=== PATIENT | female | born 1955 | race Caucasian/White ===

== ENCOUNTER → 2017-12-20 00:06 | Outpatient (CLI) | payer OTHER, SELFPAY ==
--- NOTE | 2017-12-20 07:16 | DI.REPORT_ITS ---
SYMPTOM/DIAGNOSIS: SCREENING, Z12.31 MAMMOGRAMS: Mammograms were interpreted according to the usual protocol including computer analysis with CAD system, tomosynthesis and C view imaging. Comparison with prior examinations. Breast density category A. No masses or microcalcifications are seen. There is nothing to suggest malignancy. IMPRESSION: Negative mammogram. Category 1-A. Routine screening is recommended. SA ASSESSMENT OF FINDINGS: Negative. Category 1. Patient will receive a letter notifying them of these results. BI-RAD category A. The breasts are almost entirely fatty.
[2017-12-20 08:08] LABS: PHENYTOIN (DILANTIN) 12.1 ug/mL (10.0-20.0)
[2017-12-20 08:09] LABS: Anion Gap 7.8 mmol/L (3-11); BUN 15 mg/dL (7-18); CO2 28.2 mmol/L (21.0-32.0); CREATININE 0.88 mg/dL (0.55-1.02); Calcium 8.5 mg/dL (8.5-10.1); Chloride 104 mmol/L (98-107); Cholesterol 181 mg/dL (50-200); Glucose 110 mg/dL (70-100); HDL Cholesterol 89 mg/dL (40-60); LDL CHOLESTEROL 80 mg/dL (<100); Potassium 4.2 mmol/L (3.5-5.1); Sodium 140 mmol/L (136-145); Triglyceride 67 mg/dL (30-150)
== END ==
PROVIDERS: PCP Nurse Practitioner Family; Visit Provider Nurse Practitioner Family
DX: Z00.00 Encounter for general adult medical examination without abnormal findings (principal); Z12.31 Encounter for screening mammogram for malignant neoplasm of breast; I10 Essential (primary) hypertension; G40.909 Epilepsy, unspecified, not intractable, without status epilepticus; Z51.81 Encounter for therapeutic drug level monitoring
CPT/HCPCS: 36415; 77063; 77067; 80048; 80061; 83721; 80185

== ENCOUNTER 2017-12-27 08:23 | Emergency (ER) | payer OTHER, SELFPAY ==
[2017-12-27] VITALS (15 sets, daily range): BP systolic 63–153; BP diastolic 32–93; PULSE 76–166; RESP 12–25; TEMP 36.6; O2SAT 90–96
[2017-12-27] MEDS: Verapamil 5 MG/2 ML VIAL IVP (08:35)
--- NOTE | 2017-12-27 08:37 | ED.GENADUL ---
Disposition Clinical Impression: SVT (supraventricular tachycardia) Disposition: HOME Condition: Stable Instructions: Supraventricular Tachycardia (ED) Additional Instructions: Drink plenty of fluids and get plenty of rest. Take your regular medications as directed. You should receive a call from care management regarding follow-up with cardiology. Follow-up with your primary care doctor within the next week. Return to the emergency department with any worsening or new concerning symptoms. Medical Decision Making - Lab Data Laboratory Tests 12/27/17 12/27/17 08:35 08:35 WBC 8.66 RBC 4.60 Hgb 14.5 Hct 42.7 MCV 92.8 MCH 31.5 MCHC 34.0 RDW 12.7 Plt Count 262 MPV 9.9 Immature Gran % 0.2 Neutrophils % 62.0 Lymphocytes % 26.3 Monocytes % 7.9 Eosinophils % 2.8 Basophils % 0.8 Absolute Neutrophils 5.37 Absolute Lymphocytes 2.28 Absolute Monocytes 0.68 Absolute Eosinophils 0.24 Absolute Basophils 0.07 Sodium 139 Potassium 3.9 Chloride 103 Carbon Dioxide 24.6 Anion Gap 11.4 H BUN 12 Creatinine 0.83 Estimated GFR/1.73 m2 >= 60.00 Glucose 115 H Calcium 8.5 Magnesium 2.0 Total Bilirubin 0.4 AST 16 ALT 21 Alkaline Phosphatase 129 H Troponin I < 0.02 Total Protein 7.8 Albumin 3.7 12/27/17 08:30: [address] depression noted in 1, 2, aVL, V4 through V6. 12/27/17 08:41 [address] bpm. Sinus. No acute ST elevation or depression. - Medical Decision Making 62-year-old female with history of paroxysmal SVT on 240 mg p.o. verapamil twice daily, endometrial cancer who presents with palpitations since 730 this morning. She denies chest pain or shortness of breath. EKG noted a rate of 161 and SVT. Patient has been seen multiple times before for similar episode and her EKG has an abnormal pattern which looks like SVT with aberrancy. The EKG today looks like a classic SVT and there is no aberrancy pattern. Patient was last seen here on September 17, 2017 and her EKG at that time did look like SVT with aberrancy which has been concerning to look like V. tach in the past but she has been told it's SVT with aberrancy. She states since her last visit here in September 17, 2017, she has been taken off her PO progesterone for endometrial cancer by her admin prog coord. She was started on Mirena IUD end of September. She states she was told her abnormal SVT pattern may have been due to her hormone therapy. Unsure if the hormones may have had any effect on her SVT pattern but it is interesting to note that looking back at previous EKGs she has always had the SVT with aberrancy pattern and today is looking like classic SVT. However she is on Mirena IUD so she is still on some progestin hormone therapy. Patient is declining any Valsalva maneuvers here in the ED stating she has already tried these at home. She is agreeable to lab work. She is only requesting 5 mg IV verapamil. Remainder vitals within normal limits and she appears nontoxic. 0845: Repeat EKG after 5 mg IV verapamil notes sinus rhythm of [address] elevation or depression. 0900: Pt is refusing chest xray. She was informed of the risks of missing an acute process that could be identified on chest x-ray but she declined stating this is not necessary and she has had this before. 0930: Labs reviewed and negative. Patient feels fine and would like to go home. She is sitting on edge of stretcher and appears in no acute distress. Patient states she has had these episodes before and feels fine after either converting herself at home or verapamil in the ED and generally goes to work afterwards. Patient states she plans on going to work right after this now. Patient was instructed on the importance of rest, increase fluids and follow-up with cardiology. She states she usually sees her primary care doctor for this. Will have care management arrange for follow-up appointment with cardiology. History of Present Illness - General Chief complaint: Palpitatns Stated complaint: SVT ATTACK Time Seen by Provider: 12/27/17 08:26 Source: patient Mode of arrival: ambulatory Limitations: no limitations - History of Present Illness Initial comments: Pt is a 62yo F w/ a h/o paroxysmal SVT who presents to the ED with palpitations since 730 this morning. Patient states this feels like her usual episodes of SVT. Patient has been seen multiple times in the ED before for this and states she usually gets IV verapamil and she converts. Patient states she tried multiple maneuvers at home including Valsalva with bearing down, carotid massage, and drinking cold water without relief. She denies any recent illness. She states she had been feeling at her baseline prior to the onset this morning. Patient denies chest pain or shortness of breath, vomiting or dizziness. States she took her 240 mg p.o. verapamil this morning. She takes 240 verapamil p.o. twice daily - Related Data Atenolol 25 mg PO DAILY #45 tab-cap 04/04/17 Phenytoin-Extended [Dilantin] 3 cap PO DAILY #270 tab-cap NS 09/03/17 Verapamil HCl [Verapamil ER] 240 mg PO BID #180 [email or web address] 09/03/17 Levonorgestrel [Mirena] 1 each IY DAILY 09/17/17 Allergies Allergy/AdvReac Type Severity Reaction Status Date / Time Sulfa (Sulfonamide Allergy Unknown CHILDHOOD Unverified 12/27/17 08:47 Antibiotics) ALLERGY adenosine AdvReac Mild felt like Unverified 12/27/17 08:47 she was going to have seizure Review of Systems Constitutional: denies: chills, fever Eyes: denies: eye pain ENT: denies: ear pain, dental pain Respiratory: denies: cough, shortness of breath Cardiovascular: palpitations. denies: chest pain, dyspnea on exertion Gastrointestinal: denies: abdominal pain, nausea, vomiting Genitourinary: denies: urgency, dysuria, frequency Musculoskeletal: denies: back pain Skin: denies: rash, lesions Neurological: denies: headache, weakness, numbness Past Medical History - Past Medical History Medical history: cancer (Endometrial), hypertension, seizures SVT with aberrant conduction Surgical history: cholecystectomy, , other (Tonsillectomy) Family history: no significant family history - Social History Smoking status: never smoker Alcohol use: none Drug use: none General Exam - General Limitations: no limitations General appearance: alert, in no apparent distress - Eye Eye exam: Present: EOMI - Respiratory Respiratory exam: Present: normal lung sounds bilaterally. Absent: respiratory distress, wheezes, rales, rhonchi, stridor - Cardiovascular Cardiovascular Exam: Present: normal rhythm, tachycardia - GI/Abdominal GI/Abdominal exam: Present: soft, normal bowel sounds. Absent: distended, tenderness, guarding, rebound, rigid - Extremities Exam Extremities exam: Present: other (bilaterally large lower extremities, nonpitting edema) - Neurological Exam Neurological exam: Present: alert, oriented X3 - Psychiatric Psychiatric exam: Present: normal affect - Skin Skin exam: Present: warm, dry, intact
[2017-12-27 08:42] LABS: Abs Immature Grans 0.02 k/cumm (0.0-0.09); Absolute Basophil Count 0.07 k/cumm (0.0-0.2); Absolute Eosinophil Count 0.24 k/cumm (0.0-0.7); Absolute Lymphocyte Count 2.28 k/cumm (1.2-3.4); Absolute Monocyte Count 0.68 k/cumm (0.11-0.7); Absolute Neutrophil Count 5.37 k/cumm (1.2-6.7); Basophils % 0.8; Eosinophils % 2.8; HCT 42.7 % (36.0-46.0); HGB 14.5 g/dL (12.0-15.5); Immature Grans % 0.2; Lymphocytes % 26.3; Mean Corpuscular Hemoglobin 31.5 pg (27.0-33.0); Mean Corpuscular Volume 92.8 fL (80-95); Mean Platelet Volume 9.9 fL (8.0-11.0); Monocytes % 7.9; Platelet Count 262 x1000/uL (130-400); RBC Distribution Width 12.7 % (11.7-14.6); White Blood Cell Count 8.66 k/cumm (4.4-10.8)
[2017-12-27 09:15] LABS: ALT 21 U/L (12-78); AST 16 U/L (15-37); Albumin 3.7 g/dL (3.4-5.0); Alkaline Phosphatase 129 U/L (46-116); Anion Gap 11.4 mmol/L (3-11); BUN 12 mg/dL (7-18); Bilirubin, Total 0.4 mg/dL (0.2-1.0); CO2 24.6 mmol/L (21.0-32.0); CREATININE 0.83 mg/dL (0.55-1.02); Calcium 8.5 mg/dL (8.5-10.1); Chloride 103 mmol/L (98-107); Glucose 115 mg/dL (70-100); Potassium 3.9 mmol/L (3.5-5.1); Sodium 139 mmol/L (136-145); Total Protein 7.8 g/dL (6.4-8.2)
[2017-12-27 09:21] LABS: Troponin I < 0.02 ng/mL (0.00-0.06)
== END 2017-12-27 09:51 | disposition home or self-care (01) ==
PROVIDERS: Emergency Provider Physician Assistant; PCP Nurse Practitioner Family
DX: I47.1 Supraventricular tachycardia (principal); I10 Essential (primary) hypertension
CPT/HCPCS: 36415; 80053; 93005; 96374; 99285; 83735; 84484; 85025; 93010

== ENCOUNTER 2018-01-24 10:38 | Emergency (ER) | payer OTHER, SELFPAY ==
[2018-01-24] VITALS (13 sets, daily range): BP systolic 118–139; BP diastolic 78–116; PULSE 69–171; RESP 10–22; TEMP 36.7; O2SAT 90–95
--- NOTE | 2018-01-24 10:47 | W.ED.GENAD ---
Discharge Plan Disposition Patient Disposition: HOME Condition: Stable Discharge Details Chief Complaint: Palpitatns Clinical Impression: Paroxysmal supraventricular tachycardia Primary Care Provider: Natividad Almeida ED Provider: Jamarcus Salgado Home Meds and New Rx's Prescriptions: Continue atenolol 50 MG tablet 25 mg PO DAILY Qty: 45 RF: 3 phenytoin sodium extended [Dilantin Extended] 100 MG capsule 3 cap PO DAILY Qty: 270 RF: 3 verapamil 240 MG capsule,ext rel. pellets 24 hr 240 mg PO BID Qty: 180 RF: 3 levonorgestrel [Mirena] 1 EACH intrauterine device 1 ea Intrauterine DAILY RF: 0 Discharge Instructions Instructions: Supraventricular Tachycardia (ED) Discharge Data Discharge Physician: Jamarcus Salgado Medical Decision Making MDM Narrative Medical decision making narrative: 62 yo female with known hx of svt on verapamil, comes in with complaint of I'm in SVT. She states she normally gets fluttering in her chest when she is in svt and started while doing laundry about 45 minutes ago. She denies chest tish, pressure, fevers, dyspnea. She tried vagal maneuvers at home without relief so came here. Given her known hx of svt and tele/ecg confirming this with no pain doubt acs at this time and no hypoxia or evidence of dvt nor pleuritic chest pain or sob so doubt PE. Will give verapamil as she declines adenosine or other meds for svt and monitor pt converted to normal sinus rhythm after 10mg IVP verapamil. Remains HD stable, awaiting lab work lab work is unremarkable and she remains in sinus rhythm without complaints. 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 Differential Diagnosis svt, electrolyte abnormality ECG Data Attestation: I personally reviewed and interpreted this ECG (s) as follows: Prior ECG tracings: not available for review Interpretation: 1st ekg shows SVT, rate of 170, nonspecific st depression in lateral leads 2nd ekg shows normal sinus rhythm, rate of 77, LVH, normal pr HPI - General Adult General Mode of arrival: ambulatory. Date/Time Provider Initiated Documentation: 01/24/18 10:44. Limitations to Documentation: no limitations. Information obtained by: patient. History of Present Illness 62 year old F presents to the emergency department with the chief complaint of palpitations, described as mild and moderate, with intensity rated at 3. Quality is described as other (heart beating fast), and is localized to the chest. Patient reports no radiation. Patient started experiencing this minute(s) (45) and it has been constant. No relieving factors improve symptom(s), No exacerbating factors reported . Patient notes no other symptoms.. Patient did receive the following treatments prior to arrival, none Related Data Home Medications Medication Instructions Recorded Confirmed levonorgestrel [Mirena] 1 ea INTRAUTERINE DAILY 09/17/17 12/27/17 Allergies Allergy/AdvReac Type Severity Reaction Status Date / Time Sulfa (Sulfonamide Allergy Unknown CHILDHOOD Unverified 12/27/17 08:47 Antibiotics) ALLERGY adenosine AdvReac Mild felt like Unverified 12/27/17 08:47 she was going to have seizure Review of Systems Review of Systems All systems reviewed & are unremarkable except as noted in HPI and below Constitutional Denies chills, Denies fever(s) and Denies weakness Eyes Patient Denies loss of vision ENT Denies change in voice Cardiovascular Denies chest pain and Denies dyspnea Respiratory Denies dyspnea Gastrointestinal Denies abdominal pain, Denies nausea and Denies vomiting Genitourinary Denies dysuria Musculoskeletal Denies joint swelling Integumentary/Breasts Denies rash Neurologic Denies loss of vision and Denies weakness Psychiatric Denies depression Endocrine Denies cold intolerance and Denies heat intolerance Allergic/Immunologic Reports urticaria PFSH Family History Mother Essential hypertension Diabetes Alcohol abuse Depression Hyperlipidemia COPD (chronic obstructive pulmonary disease) Father Essential hypertension Prostate cancer Alcohol abuse Essential hypertension Personal history of malignant neoplasm Sister Essential hypertension Brother Essential hypertension Depression Grandfather Essential hypertension Depression Heart disease Hyperlipidemia Grandfather Prostate cancer Asthma Grandmother Essential hypertension Neoplasm Breast cancer Cerebrovascular accident Grandmother Essential hypertension Cerebrovascular accident Son No problems noted. Son Diffuse cerebral atrophy Hypoparathyroidism Developmental delay Son No problems noted. Other Skin cancer Medical History Endometrial hyperplasia without atypia, complex (10/08/16) Epilepsy (05/20/75) Hypertension Morbid obesity Paroxysmal SVT (supraventricular tachycardia) (05/20/94) Postmenopausal bleeding Social History Smoking/Tobacco Use Status: Never Surgical History section Cholecystectomy (~1989) Endometrial Biopsy (09/26/16) Ligation of fallopian tube (~04/1986) Tonsillectomy (~1963) Exam Const General: no acute distress Orientation: alert HENMT Head: normal to inspection Ears: external ears normal General nose exam: external nose normal Mouth: moist mucous membranes Eyes General: appearance normal, both eyes and all related structures Neck Neck: normal visual inspection Resp Effort & Inspection: normal respiratory effort and able to speak in complete sentences Cardio Rate: tachycardic Rhythm: regular rhythm Skin General skin exam: no rashes or lesions noted Neuro General: alert and oriented x3 Extrem General: normal to inspection Psych Mental Status: mental status grossly normal Critical Care Time Critical Care Time: Yes Total Critical Care Time: 45 (minutes) Attestation: Time spent giving IV Calcium channel princess, ecg review, lab review and frequent reassessments in patient with svt and potential to deteriorate at any time
[2018-01-24] MEDS: Verapamil 5 MG/2 ML VIAL 10 MG IVP (10:50)
--- NOTE | 2018-01-24 10:50 | ED.GENADUL_ITS ---
Discharge Plan Disposition Patient Disposition: HOME Condition: Stable Discharge Details Chief Complaint: Palpitatns Clinical Impression: Paroxysmal supraventricular tachycardia Primary Care Provider: Natividad Almeida ED Provider: Jamarcus Salgado Home Meds and New Rx's Prescriptions: Continue atenolol 50 MG tablet 25 mg PO DAILY Qty: 45 RF: 3 phenytoin sodium extended [Dilantin Extended] 100 MG capsule 3 cap PO DAILY Qty: 270 RF: 3 verapamil 240 MG capsule,ext rel. pellets 24 hr 240 mg PO BID Qty: 180 RF: 3 levonorgestrel [Mirena] 1 EACH intrauterine device 1 ea Intrauterine DAILY RF: 0 Discharge Instructions Instructions: Supraventricular Tachycardia (ED) Discharge Data Discharge Physician: Jamarcus Salgado Medical Decision Making MDM Narrative Medical decision making narrative: 62 yo female with known hx of svt on verapamil, comes in with complaint of I'm in SVT. She states she normally gets fluttering in her chest when she is in svt and started while doing laundry about 45 minutes ago. She denies chest tish, pressure, fevers, dyspnea. She tried vagal maneuvers at home without relief so came here. Given her known hx of svt and tele/ecg confirming this with no pain doubt acs at this time and no hypoxia or evidence of dvt nor pleuritic chest pain or sob so doubt PE. Will give verapamil as she declines adenosine or other meds for svt and monitor pt converted to normal sinus rhythm after 10mg IVP verapamil. Remains HD stable , awaiting lab work lab work is unremarkable and she remains in sinus rhythm without complaints. 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 Differential Diagnosis svt, electrolyte abnormality ECG Data Attestation: I personally reviewed and interpreted this ECG (s) as follows: Prior ECG tracings: not available for review Interpretation: 1st ekg shows SVT, rate of 170, nonspecific st depression in lateral leads 2nd ekg shows normal sinus rhythm, rate of 77, LVH, normal pr HPI - General Adult General Mode of arrival: ambulatory . Date/Time Provider Initiated Documentation: 01/24/18 10:44 . Limitations to Documentation: no limitations . Information obtained by: patient . History of Present Illness 62 year old F presents to the emergency department with the chief complaint of palpitations, described as mild and moderate, with intensity rated at 3. Quality is described as other (heart beating fast), and is localized to the chest. Patient reports no radiation. Patient started experiencing this minute(s) (45) and it has been constant. No relieving factors improve symptom(s), No exacerbating factors reported . Patient notes no other symptoms.. Patient did receive the following treatments prior to arrival, none Related Data Home Medications Medication Instructions Recorded Confirmed levonorgestrel [Mirena] 1 ea INTRAUTERINE DAILY 09/17/17 12/27/17 Allergies Allergy/AdvReac Type Severity Reaction Status Date / Time Sulfa (Sulfonamide Allergy Unknown CHILDHOOD Unverified 12/27/17 08:47 Antibiotics) ALLERGY adenosine AdvReac Mild felt like Unverified 12/27/17 08:47 she was going to have seizure Review of Systems Review of Systems All systems reviewed & are unremarkable except as noted in HPI and below Constitutional Denies chills, Denies fever(s) and Denies weakness Eyes Patient Denies loss of vision ENT Denies change in voice Cardiovascular Denies chest pain and Denies dyspnea Respiratory Denies dyspnea Gastrointestinal Denies abdominal pain, Denies nausea and Denies vomiting Genitourinary Denies dysuria Musculoskeletal Denies joint swelling Integumentary/Breasts Denies rash Neurologic Denies loss of vision and Denies weakness Psychiatric Denies depression Endocrine Denies cold intolerance and Denies heat intolerance Allergic/Immunologic Reports urticaria PFSH Family History Mother Essential hypertension Diabetes Alcohol abuse Depression Hyperlipidemia COPD (chronic obstructive pulmonary disease) Father Essential hypertension Prostate cancer Alcohol abuse Essential hypertension Personal history of malignant neoplasm Sister Essential hypertension Brother Essential hypertension Depression Grandfather Essential hypertension Depression Heart disease Hyperlipidemia Grandfather Prostate cancer Asthma Grandmother Essential hypertension Neoplasm Breast cancer Cerebrovascular accident Grandmother Essential hypertension Cerebrovascular accident Son No problems noted. Son Diffuse cerebral atrophy Hypoparathyroidism Developmental delay Son No problems noted. Other Skin cancer Medical History Endometrial hyperplasia without atypia, complex (10/08/16) Epilepsy (05/20/75) Hypertension Morbid obesity Paroxysmal SVT (supraventricular tachycardia) (05/20/94) Postmenopausal bleeding Social History Smoking/Tobacco Use Status: Never Surgical History section Cholecystectomy (~1989) Endometrial Biopsy (09/26/16) Ligation of fallopian tube (~04/1986) Tonsillectomy (~1963) Exam Const General: no acute distress Orientation: alert HENMT Head: normal to inspection Ears: external ears normal General nose exam: external nose normal Mouth: moist mucous membranes Eyes General: appearance normal, both eyes and all related structures Neck Neck: normal visual inspection Resp Effort & Inspection: normal respiratory effort and able to speak in complete sentences Cardio Rate: tachycardic Rhythm: regular rhythm Skin General skin exam: no rashes or lesions noted Neuro General: alert and oriented x3 Extrem General: normal to inspection Psych Mental Status: mental status grossly normal Critical Care Time Critical Care Time: Yes Total Critical Care Time: 45 (minutes) Attestation: Time spent giving IV Calcium channel princess, ecg review, lab review and frequent reassessments in patient with svt and potential to deteriorate at any time
[2018-01-24 11:03] LABS: Abs Immature Grans 0.04 k/cumm (0.0-0.09); Absolute Basophil Count 0.07 k/cumm (0.0-0.2); Absolute Eosinophil Count 0.22 k/cumm (0.0-0.7); Absolute Lymphocyte Count 2.51 k/cumm (1.2-3.4); Absolute Monocyte Count 0.71 k/cumm (0.11-0.7); Absolute Neutrophil Count 5.23 k/cumm (1.2-6.7); Basophils % 0.8; Eosinophils % 2.5; HCT 41.5 % (36.0-46.0); Immature Grans % 0.5; Lymphocytes % 28.6; Mean Corp. HGB Concentration 33.7 g/dL (32.0-36.0); Mean Corpuscular Hemoglobin 31.1 pg (27.0-33.0); Mean Corpuscular Volume 92.2 fL (80-95); Mean Platelet Volume 10.3 fL (8.0-11.0); Monocytes % 8.1; Neutrophils % 59.5; Platelet Count 246 x1000/uL (130-400); RBC Distribution Width 12.6 % (11.7-14.6); White Blood Cell Count 8.78 k/cumm (4.4-10.8)
[2018-01-24 11:13] LABS: ALT 18 U/L (12-78); AST 18 U/L (15-37); Albumin 3.7 g/dL (3.4-5.0); Alkaline Phosphatase 118 U/L (46-116); Anion Gap 11.5 mmol/L (3-11); BUN 14 mg/dL (7-18); Bilirubin, Total 0.3 mg/dL (0.2-1.0); CO2 24.5 mmol/L (21.0-32.0); Calcium 8.6 mg/dL (8.5-10.1); Chloride 104 mmol/L (98-107); Glucose 93 mg/dL (70-100); Potassium 3.9 mmol/L (3.5-5.1); Sodium 140 mmol/L (136-145); Total Protein 7.6 g/dL (6.4-8.2)
== END 2018-01-24 11:45 | disposition home or self-care (01) ==
LOC: ER 11:40
PROVIDERS: Emergency Provider Emergency Medicine; PCP Nurse Practitioner Family
DX: I47.1 Supraventricular tachycardia (principal); I10 Essential (primary) hypertension
CPT/HCPCS: 36415; 80053; 93005; 96374; 99285; 99291; 85025; 93010

== ENCOUNTER 2018-06-05 19:51 | Emergency (ER) | payer MEDICAID, SELFPAY ==
[2018-06-05 19:55] VITALS: BP 112/68; PULSE 182; RESP 19; TEMP 36.3; O2SAT 93
[2018-06-05 20:01] VITALS: BP 112/68; PULSE 183
[2018-06-05] MEDS: Verapamil 5 MG/2 ML VIAL 10 MG IVP (20:01)
--- NOTE | 2018-06-05 20:13 | W.ED.GENAD ---
Discharge Plan Disposition Patient Disposition: HOME Condition: Good Discharge Details Chief Complaint: Palpitatns Clinical Impression: Paroxysmal supraventricular tachycardia Primary Care Provider: Natividad Almeida ED Provider: Isidro Maldonado and New Rx's Prescriptions: Continued phenytoin sodium extended [Dilantin Extended] 100 MG capsule 3 cap PO DAILY Qty: 270 RF: 3 verapamil 240 MG capsule,ext rel. pellets 24 hr 240 mg PO BID Qty: 180 RF: 3 atenolol 50 mg tablet 25 mg PO DAILY Qty: 45 RF: 3 Mirena 1 EACH intrauterine device 1 ea Intrauterine DAILY RF: 0 Discharge Instructions Additional Instructions: Resume your previous medications as before. Follow-up with primary care as needed. Return to ED for syncope, shortness of breath, chest pain, recurrent SVT. Referrals: Natividad Almeida, CRIMINOLOGY PROFESSOR [Primary Care Provider] - Medical Decision Making Patient arrives with wide-complex tachycardia. I have seen her previously. She has had this dating back to her 20s. It is known to be SVT with aberrant conduction. She responds to verapamil. She is hemodynamically stable. IV is established and 10 mg of verapamil is ordered. Chemistries were ordered to check electrolytes. Within receiving about 5 mg of verapamil she broke into sinus rhythm. Will observe over the next hour or so and wait for labs to return. Patient has remained in sinus rhythm. Electrolytes are normal. Patient has been stable and will be discharged home on her previous medication regimen. Lab Data Lab results reviewed: Yes I reviewed the patient's lab results. ECG Data Attestation: I personally reviewed and interpreted this ECG (s) as follows: Prior ECG tracings: available for review Interpretation: EKG #1 with wide-complex tachycardia at a rate of 180. EKG #2 is sinus rhythm at a rate of 100. Normal axis and intervals at this point. No acute ST changes. Both EKGs have comparable EKGs in the system. The wide-complex tachycardia is known to be SVT with aberrant conduction. HPI General Mode of arrival: ambulatory. Date/Time Provider Initiated Documentation: 06/05/18 19:55. Limitations to Documentation: no limitations. Information obtained by: patient. HPI Narrative: Patient presents to ED with palpitations. Patient has history of same dating back to when she was in her 20s. She has known SVT with aberrant conduction. Onset about 40 minutes prior to arrival. No associated symptoms. No changes in medications, stimulants, illnesses. She denies having lightheadedness, dizziness, shortness of breath, chest pain or pressure. She did try vagal maneuvers and carotid massage at home. She has not missed any doses of medications which include atenolol and verapamil. Related Data Home Medications Medication Instructions Recorded Confirmed phenytoin sodium extended 3 cap PO DAILY #270 tab-cap NS 09/03/17 06/05/18 [Dilantin Extended] verapamil 240 mg PO BID #180 [email or web address] 09/03/17 06/05/18 Mirena 1 ea INTRAUTERINE DAILY 09/17/17 06/05/18 atenolol 50 mg tablet 25 mg PO DAILY #45 tab-cap 02/04/18 06/05/18 Previous Rx's Medication Instructions Recorded phenytoin sodium extended 3 cap PO DAILY #270 tab-cap NS 09/03/17 [Dilantin Extended] verapamil 240 mg PO BID #180 [email or web address] 09/03/17 atenolol 50 mg tablet 25 mg PO DAILY #45 tab-cap 02/04/18 Allergies Allergy/AdvReac Type Severity Reaction Status Date / Time Sulfa (Sulfonamide Allergy Unknown CHILDHOOD Unverified 06/05/18 20:08 Antibiotics) ALLERGY adenosine AdvReac Mild felt like Unverified 06/05/18 20:08 she was going to have seizure General Stated Complaint: Palpitatns RAMOS: 2 Review of Systems Constitutional Denies chills, Denies fever(s), Denies headache(s) and Denies weakness Eyes Denies eye discharge, Denies loss of vision and Denies eye pain ENT Denies vertigo, Denies otalgia, Denies facial pain, Denies headache(s), Denies nasal congestion, Denies neck pain, Denies sinus pressure and Denies sore throat Cardiovascular Denies chest pain, Denies diaphoresis, Denies syncope, Reports rapid heart rate, Denies edema, Denies leg edema, Denies lightheadedness, Reports palpitations, Denies dyspnea and Denies dyspnea on exertion Respiratory Denies chest congestion, Denies cough, Denies dyspnea and Denies dyspnea on exertion Gastrointestinal Denies abdominal pain, Denies diarrhea, Denies nausea and Denies vomiting Genitourinary Denies hematuria, Denies dysuria and Denies pelvic pain Musculoskeletal Denies back pain, Denies myalgias, Denies neck pain, Denies numbness and Denies tingling Integumentary/Breasts Denies rash Neurologic Denies confusion, Denies vertigo, Denies syncope, Denies headache(s), Denies focal weakness, Denies loss of vision, Denies numbness, Denies tingling, Denies paresthesias and Denies weakness Psychiatric Denies confusion Endocrine Reports palpitations [facility] Medical History Endometrial hyperplasia without atypia, complex (Chronic 10/08/16) Epilepsy (Chronic 05/20/75) Hypertension (Chronic) Morbid obesity (Chronic) Paroxysmal SVT (supraventricular tachycardia) (Chronic 05/20/94) Postmenopausal bleeding (Chronic) Surgical History section (Inactive) Cholecystectomy (Inactive ~1989) Endometrial Biopsy (Inactive 09/26/16) Ligation of fallopian tube (Inactive ~04/1986) Tonsillectomy (Inactive ~1963) Social History Smoking/Tobacco Use Status: Never Exam Const General: cooperative, comfortable and no acute distress Nutritional Appearance: obese morbidly obese Orientation: alert [facility] Head: normocephalic and atraumatic Mouth: moist mucous membranes Neck Neck: normal visual inspection, trachea midline and supple Resp Effort & Inspection: normal respiratory effort Auscultation: clear to auscultation bilaterally Cardio Rate: tachycardic Rhythm: regular rhythm Heart Sounds: S1 normal and S2 normal Pulses: radial pulses present GI Palpation: soft and nontender Skin General skin exam: no rashes or lesions noted Neuro General: alert, oriented x3 and no focal motor deficits Extrem General: no clubbing, cyanosis or edema and no calf tenderness Course Vital Signs Temperature 97.3 F L 06/05/18 19:55 Pulse 182 H 06/05/18 19:55 Respiratory Rate 06/05/18 19:55 Blood Pressure 112/68 06/05/18 19:55 Pulse Oximetry 93 L 06/05/18 19:55 Temperature 97.3 F L 06/05/18 19:55 Temperature Source Skin 06/05/18 19:55 Pulse 183 H 06/05/18 20:01 Respiratory Rate 19 06/05/18 19:55 Respiratory Effort 06/05/18 20:06 Blood Pressure 112/68 06/05/18 20:01 Blood Pressure Position Sitting 06/05/18 19:55 Pulse Oximetry 93 L 06/05/18 19:55 Oxygen Delivery Method Room Air 06/05/18 19:55 Oxygen Flow Rate 0 06/05/18 19:55 Pain Level 0 06/05/18 19:55 Critical Care Time Critical Care Time: Yes Total Critical Care Time: 40 Attestation: SVT at 180
--- NOTE | 2018-06-05 20:16 | ED.GENADUL_ITS ---
Discharge Plan Disposition Patient Disposition: HOME Condition: Good Discharge Details Chief Complaint: Palpitatns Clinical Impression: Paroxysmal supraventricular tachycardia Primary Care Provider: Natividad Almeida ED Provider: Isidro Maldonado and New Rx's Prescriptions: Continued phenytoin sodium extended [Dilantin Extended] 100 MG capsule 3 cap PO DAILY Qty: 270 RF: 3 verapamil 240 MG capsule,ext rel. pellets 24 hr 240 mg PO BID Qty: 180 RF: 3 atenolol 50 mg tablet 25 mg PO DAILY Qty: 45 RF: 3 Mirena 1 EACH intrauterine device 1 ea Intrauterine DAILY RF: 0 Discharge Instructions Additional Instructions: Resume your previous medications as before. Follow-up with primary care as needed. Return to ED for syncope, shortness of breath, chest pain, recurrent SVT. Referrals: Natividad Almeida, CHIP PERSON [Primary Care Provider] - Medical Decision Making Patient arrives with wide-complex tachycardia. I have seen her previously. She has had this dating back to her 20s. It is known to be SVT with aberrant conduction. She responds to verapamil. She is hemodynamically stable. IV is established and 10 mg of verapamil is ordered. Chemistries were ordered to check electrolytes. Within receiving about 5 mg of verapamil she broke into sinus rhythm. Will observe over the next hour or so and wait for labs to return. Patient has remained in sinus rhythm. Electrolytes are normal. Patient has been stable and will be discharged home on her previous medication regimen. Lab Data Lab results reviewed: Yes I reviewed the patient's lab results. ECG Data Attestation: I personally reviewed and interpreted this ECG (s) as follows: Prior ECG tracings: available for review Interpretation: EKG #1 with wide-complex tachycardia at a rate of 180. EKG #2 is sinus rhythm at a rate of 100. Normal axis and intervals at this point. No acute ST changes. Both EKGs have comparable EKGs in the system. The wide-complex tachycardia is known to be SVT with aberrant conduction. HPI General Mode of arrival: ambulatory . Date/Time Provider Initiated Documentation: 06/05/18 19:55 . Limitations to Documentation: no limitations . Information obtained by: patient . HPI Narrative: Patient presents to ED with palpitations. Patient has history of same dating back to when she was in her 20s. She has known SVT with aberrant conduction. Onset about 40 minutes prior to arrival. No associated symptoms. No changes in medications, stimulants, illnesses. She denies having lightheadedness, dizziness, shortness of breath, chest pain or pressure. She did try vagal maneuvers and carotid massage at home. She has not missed any doses of medications which include atenolol and verapamil. Related Data Home Medications Medication Instructions Recorded Confirmed phenytoin sodium extended 3 cap PO DAILY #270 tab-cap NS 09/03/17 06/05/18 [Dilantin Extended] verapamil 240 mg PO BID #180 [email or web address] 09/03/17 06/05/18 Mirena 1 ea INTRAUTERINE DAILY 09/17/17 06/05/18 atenolol 50 mg tablet 25 mg PO DAILY #45 tab-cap 02/04/18 06/05/18 Previous Rx's Medication Instructions Recorded phenytoin sodium extended 3 cap PO DAILY #270 tab-cap NS 09/03/17 [Dilantin Extended] verapamil 240 mg PO BID #180 [email or web address] 09/03/17 atenolol 50 mg tablet 25 mg PO DAILY #45 tab-cap 02/04/18 Allergies Allergy/AdvReac Type Severity Reaction Status Date / Time Sulfa (Sulfonamide Allergy Unknown CHILDHOOD Unverified 06/05/18 20:08 Antibiotics) ALLERGY adenosine AdvReac Mild felt like Unverified 06/05/18 20:08 she was going to have seizure General Stated Complaint: Palpitatns RAMOS: 2 Review of Systems Constitutional Denies chills, Denies fever(s), Denies headache(s) and Denies weakness Eyes Denies eye discharge, Denies loss of vision and Denies eye pain ENT Denies vertigo, Denies otalgia, Denies facial pain, Denies headache(s), Denies nasal congestion, Denies neck pain, Denies sinus pressure and Denies sore throat Cardiovascular Denies chest pain, Denies diaphoresis, Denies syncope, Reports rapid heart rate, Denies edema, Denies leg edema, Denies lightheadedness, Reports palpitations, Denies dyspnea and Denies dyspnea on exertion Respiratory Denies chest congestion, Denies cough, Denies dyspnea and Denies dyspnea on exertion Gastrointestinal Denies abdominal pain, Denies diarrhea, Denies nausea and Denies vomiting Genitourinary Denies hematuria, Denies dysuria and Denies pelvic pain Musculoskeletal Denies back pain, Denies myalgias, Denies neck pain, Denies numbness and Denies tingling Integumentary/Breasts Denies rash Neurologic Denies confusion, Denies vertigo, Denies syncope, Denies headache(s), Denies focal weakness, Denies loss of vision, Denies numbness, Denies tingling, Denies paresthesias and Denies weakness Psychiatric Denies confusion Endocrine Reports palpitations [facility] Medical History Endometrial hyperplasia without atypia, complex (Chronic 10/08/16) Epilepsy (Chronic 05/20/75) Hypertension (Chronic) Morbid obesity (Chronic) Paroxysmal SVT (supraventricular tachycardia) (Chronic 05/20/94) Postmenopausal bleeding (Chronic) Surgical History section (Inactive) Cholecystectomy (Inactive ~1989) Endometrial Biopsy (Inactive 09/26/16) Ligation of fallopian tube (Inactive ~04/1986) Tonsillectomy (Inactive ~1963) Social History Smoking/Tobacco Use Status: Never Exam Const General: cooperative, comfortable and no acute distress Nutritional Appearance: obese morbidly obese Orientation: alert [facility] Head: normocephalic and atraumatic Mouth: moist mucous membranes Neck Neck: normal visual inspection, trachea midline and supple Resp Effort & Inspection: normal respiratory effort Auscultation: clear to auscultation bilaterally Cardio Rate: tachycardic Rhythm: regular rhythm Heart Sounds: S1 normal and S2 normal Pulses: radial pulses present GI Palpation: soft and nontender Skin General skin exam: no rashes or lesions noted Neuro General: alert, oriented x3 and no focal motor deficits Extrem General: no clubbing, cyanosis or edema and no calf tenderness Course Vital Signs Temperature 97.3 F L 06/05/18 19:55 Pulse 182 H 06/05/18 19:55 Respiratory Rate 06/05/18 19:55 Blood Pressure 112/68 06/05/18 19:55 Pulse Oximetry 93 L 06/05/18 19:55 Temperature 97.3 F L 06/05/18 19:55 Temperature Source Skin 06/05/18 19:55 Pulse 183 H 06/05/18 20:01 Respiratory Rate 19 06/05/18 19:55 Respiratory Effort 06/05/18 20:06 Blood Pressure 112/68 06/05/18 20:01 Blood Pressure Position Sitting 06/05/18 19:55 Pulse Oximetry 93 L 06/05/18 19:55 Oxygen Delivery Method Room Air 06/05/18 19:55 Oxygen Flow Rate 0 06/05/18 19:55 Pain Level 0 06/05/18 19:55 Critical Care Time Critical Care Time: Yes Total Critical Care Time: 40 Attestation: SVT at 180
[2018-06-05 20:29] LABS: Anion Gap 11.7 mmol/L (3-11); BUN 21 mg/dL (7-18); CO2 25.3 mmol/L (21.0-32.0); Calcium 8.7 mg/dL (8.5-10.1); Chloride 104 mmol/L (98-107); Estimated GFR 56.56 (mL/min/1.73m2); Glucose 143 mg/dL (70-100); Magnesium 1.9 mg/dL (1.8-2.4); Potassium 3.6 mmol/L (3.5-5.1); Sodium 141 mmol/L (136-145)
== END 2018-06-05 21:27 | disposition home or self-care (01) ==
PROVIDERS: Emergency Provider Emergency Medicine; PCP Nurse Practitioner Family
DX: I47.1 Supraventricular tachycardia (principal); I10 Essential (primary) hypertension
CPT/HCPCS: 36415; 80048; 93005; 96374; 99284; 83735; 93010

== ENCOUNTER 2018-06-07 17:12 | Emergency (ER) | payer OTHER, MEDICAID, SELFPAY ==
[2018-06-07] VITALS (28 sets, daily range): BP systolic 96–152; BP diastolic 48–101; PULSE 78–177; RESP 12–37; TEMP 36.3; O2SAT 95–98
--- NOTE | 2018-06-07 17:32 | ED.GENADUL_ITS ---
Discharge Plan Disposition Patient Disposition: HOME Condition: Stable Discharge Details Chief Complaint: Palpitatns Clinical Impression: Supraventricular tachycardia Primary Care Provider: Natividad Almeida ED Provider: Lacie Rubin Home Meds and New Rx's Prescriptions: Continued phenytoin sodium extended [Dilantin Extended] 100 MG capsule 3 cap PO DAILY Qty: 270 RF: 3 verapamil 240 MG capsule,ext rel. pellets 24 hr 240 mg PO BID Qty: 180 RF: 3 atenolol 50 mg tablet 25 mg PO DAILY Qty: 45 RF: 3 Mirena 1 EACH intrauterine device 1 ea Intrauterine DAILY RF: 0 Discharge Instructions Instructions: Supraventricular Tachycardia (ED) Additional Instructions: Take your regular medications as directed. Follow-up with your scheduled appointment with your primary care doctor this week. Follow-up with care management if you need any assistance with an appointment with cardiology. Return to the emergency department any worsening or new concerning symptoms. Discharge Data Discharge Physician: Lacie Rubin Medical Decision Making 63-year-old female with history of SVT who presents with palpitations since 1 hour ago. Patient is well-known to the ED and I have seen her multiple times before for similar complaint. She has been known to have SVT with aberrancy. She does not respond to adenosine. She usually responds to IV verapamil. She took her p.o. dose of verapamil this morning. She denies any chest pain, shortness of breath. She tried multiple Valsalva maneuvers at home without relief. EKG notes a rate of 180 and SVT, narrow complex. She is refusing chest x-ray. Will check labs to assess electrolytes and give 5 mg of verapamil IV and reassess. 1735 --now converted to sinus rhythm, rate 91. 1840 --labs reviewed and unremarkable. Patient states she feels good and would like to go home. She has a follow-up appointment with her primary care doctor this week. She has seen cardiology in the past but states she would rather discuss any medication changes with her primary care doctor. She states she is taking the max verapamil at 480 mg daily. She is instructed to take her evening dose. Medical Records Medical records reviewed: Yes I reviewed the patient's medical records. Lab Data Lab results reviewed: Yes I reviewed the patient's lab results. Laboratory Tests Range/Units 06/07/18 06/07/18 17:30 17:30 WBC (4.4-10.8) k/cumm 12.45 H RBC (4.00-5.20) m/cumm 4.64 Hgb (12.0-15.5) g/dL 14.7 Hct (36.0-46.0) % 43.2 MCV (80-95) fL 93.1 MCH (27.0-33.0) pg 31.7 MCHC (32.0-36.0) g/dL 34.0 RDW (11.7-14.6) % 12.5 Plt Count (130-400) x1000/uL 273 MPV (8.0-11.0) fL 10.0 Immature Gran % 0.3 Neutrophils % 61.4 Lymphocytes % 27.7 Monocytes % 6.8 Eosinophils % 3.1 Basophils % 0.7 Absolute Neutrophils (1.2-6.7) k/cumm 7.64 H Absolute Lymphocytes (1.2-3.4) k/cumm 3.45 H Absolute Monocytes (0.11-0.7) k/cumm 0.85 H Absolute Eosinophils (0.0-0.7) k/cumm 0.39 Absolute Basophils (0.0-0.2) k/cumm 0.09 Sodium (136-145) mmol/L 141 Potassium (3.5-5.1) mmol/L 3.9 Chloride (98-107) mmol/L 104 Carbon Dioxide (21.0-32.0) mmol/L 27.8 Anion Gap (3-11) mmol/L 9.2 BUN (7-18) mg/dL 20 H Creatinine (0.55-1.02) mg/dL 0.97 Estimated GFR/1.73 m2 (mL/min/1.73m2) 58.38 Glucose (70-100) mg/dL 112 H Calcium (8.5-10.1) mg/dL 9.0 Magnesium (1.8-2.4) mg/dL 2.0 Total Bilirubin (0.2-1.0) mg/dL 0.3 AST (15-37) U/L 14 L ALT (12-78) U/L 21 Alkaline Phosphatase (46-116) U/L 152 H Troponin I (0.00-0.06) ng/mL < 0.02 Total Protein (6.4-8.2) g/dL 8.0 Albumin (3.4-5.0) g/dL 3.8 ECG Data Attestation: I personally reviewed and interpreted this ECG (s) as follows: Interpretation: 1717 -- 180, svt, is [address] depression noted in 1, aVL, V5 and V6 which is been seen in previous. QTc 415. QRS 62. 1738 -- 91, sinus, no acute ST elevation or depression. QTc 445, QRS 101. HPI General Mode of arrival: ambulatory . Date/Time Provider Initiated Documentation: 06/07/18 17:18 . Limitations to Documentation: no limitations . Information obtained by: patient . HPI Narrative: Patient is a 63-year-old female with a history of SVT who presents with palpitations consistent with her previous SVT for the past hour. Patient states she was at home with her grandchildren when the symptoms started. She denies any chest pain, shortness of breath, nausea or vomiting. She states she takes 240 mg of verapamil twice a day and she took her morning dose but did not yet take her evening dose. She states she has been taking her other additional medications as well including atenolol and Dilantin. Related Data Home Medications Medication Instructions Recorded Confirmed phenytoin sodium extended 3 cap PO DAILY #270 tab-cap NS 09/03/17 06/05/18 [Dilantin Extended] verapamil 240 mg PO BID #180 [email or web address] 09/03/17 06/05/18 Mirena 1 ea INTRAUTERINE DAILY 09/17/17 06/05/18 atenolol 50 mg tablet 25 mg PO DAILY #45 tab-cap 02/04/18 06/05/18 Previous Rx's Medication Instructions Recorded phenytoin sodium extended 3 cap PO DAILY #270 tab-cap NS 09/03/17 [Dilantin Extended] verapamil 240 mg PO BID #180 [email or web address] 09/03/17 atenolol 50 mg tablet 25 mg PO DAILY #45 tab-cap 02/04/18 Allergies Allergy/AdvReac Type Severity Reaction Status Date / Time Sulfa (Sulfonamide Allergy Unknown CHILDHOOD Unverified 06/05/18 20:08 Antibiotics) ALLERGY adenosine AdvReac Mild felt like Unverified 06/05/18 20:08 she was going to have seizure General Stated Complaint: Palpitatns RAMOS: 2 Review of Systems Review of Systems All systems reviewed & are unremarkable except as noted in HPI and below Constitutional Reports as per HPI, Denies chills and Denies fever(s) Eyes Denies blurry vision ENT Denies dizziness, Denies sore throat and Denies throat swelling Cardiovascular Denies chest pain, Reports palpitations and Denies dyspnea Respiratory Denies dyspnea Gastrointestinal Denies abdominal pain, Denies diarrhea and Denies vomiting Genitourinary Denies hematuria and Denies dysuria Musculoskeletal Denies back pain and Denies numbness Integumentary/Breasts Denies lesions and Denies rash Neurologic Denies dizziness and Denies numbness Endocrine Reports palpitations Allergic/Immunologic Denies throat swelling [facility] Medical History Endometrial hyperplasia without atypia, complex (Chronic 10/08/16) Epilepsy (Chronic 05/20/75) Hypertension (Chronic) Morbid obesity (Chronic) Paroxysmal SVT (supraventricular tachycardia) (Chronic 05/20/94) Postmenopausal bleeding (Chronic) Surgical History section (Inactive) Cholecystectomy (Inactive ~1989) Endometrial Biopsy (Inactive 09/26/16) Ligation of fallopian tube (Inactive ~04/1986) Tonsillectomy (Inactive ~1963) Family History Mother Essential hypertension Diabetes Alcohol abuse Depression Hyperlipidemia COPD (chronic obstructive pulmonary disease) Father Essential hypertension Prostate cancer Alcohol abuse Essential hypertension Personal history of malignant neoplasm Sister Essential hypertension Brother Essential hypertension Depression Grandfather Essential hypertension Depression Heart disease Hyperlipidemia Grandfather Prostate cancer Asthma Grandmother Essential hypertension Neoplasm Breast cancer Stroke Grandmother Essential hypertension Stroke Son No problems noted. Son Diffuse cerebral atrophy Hypoparathyroidism Developmental delay Son No problems noted. Other Skin cancer Social History Smoking/Tobacco Use Status: Never Exam Const General: cooperative, healthy appearing and no acute distress HENMT Head: normal to inspection Face and sinus: normal facial exam Eyes General: appearance normal, both eyes and all related structures EOM: EOM intact bilaterally Neck Neck: normal visual inspection and No submandibular swelling Lymphatic: no lymphadenopathy noted Chest Chest: normal inspection of the chest and no tenderness Resp Effort & Inspection: normal respiratory effort and able to speak in complete sentences Auscultation: clear to auscultation bilaterally Cardio Rate: tachycardic Rhythm: regular rhythm GI Inspection: normal to inspection Palpation: soft, not firm, not rigid and nontender Auscultation: normal bowel sounds Skin General skin exam: no rashes or lesions noted Neuro General: alert, awake and oriented x3 Cognition: normal cognition Speech: speech normal Motor: muscle tone normal throughout Sensory Exam: no sensory deficits noted Extrem Other: Large chronically edematous lower extremities bilaterally. No erythema, pitting edema, skin changes or rash noted. Psych Appearance: grossly normal Mental Status: mental status grossly normal Speech and Movement: speech and movement normal Affect: normal affect Course Vital Signs Temperature 97.3 F L 06/07/18 17:15 Pulse 176 H 06/07/18 17:15 Respiratory Rate 37 H 06/07/18 17:15 Blood Pressure 142/81 H 06/07/18 17:15 Pulse Oximetry 98 06/07/18 17:15 Temperature 97.3 F L 06/07/18 17:15 Temperature Source Temporal Artery Scan 06/07/18 17:15 Pulse 176 H 06/07/18 17:15 Respiratory Rate 37 H 06/07/18 17:15 Blood Pressure 142/81 H 06/07/18 17:15 Blood Pressure Position Sitting 06/07/18 17:15 Pulse Oximetry 98 06/07/18 17:15 Oxygen Delivery Method Room Air 06/07/18 17:15 Oxygen Flow Rate 0 06/07/18 17:15
[2018-06-07] MEDS: Verapamil 5 MG/2 ML VIAL IVP (17:34)
[2018-06-07 17:37] LABS: Abs Immature Grans 0.04 k/cumm (0.0-0.09); Absolute Basophil Count 0.09 k/cumm (0.0-0.2); Absolute Eosinophil Count 0.39 k/cumm (0.0-0.7); Absolute Lymphocyte Count 3.45 k/cumm (1.2-3.4); Absolute Monocyte Count 0.85 k/cumm (0.11-0.7); Absolute Neutrophil Count 7.64 k/cumm (1.2-6.7); Basophils % 0.7; Eosinophils % 3.1; HCT 43.2 % (36.0-46.0); HGB 14.7 g/dL (12.0-15.5); Immature Grans % 0.3; Lymphocytes % 27.7; Mean Corpuscular Hemoglobin 31.7 pg (27.0-33.0); Mean Corpuscular Volume 93.1 fL (80-95); Monocytes % 6.8; Neutrophils % 61.4; Platelet Count 273 x1000/uL (130-400); RBC 4.64 m/cumm (4.00-5.20); RBC Distribution Width 12.5 % (11.7-14.6); White Blood Cell Count 12.45 k/cumm (4.4-10.8)
[2018-06-07 17:54] LABS: ALT 21 U/L (12-78); AST 14 U/L (15-37); Albumin 3.8 g/dL (3.4-5.0); Alkaline Phosphatase 152 U/L (46-116); Anion Gap 9.2 mmol/L (3-11); BUN 20 mg/dL (7-18); Bilirubin, Total 0.3 mg/dL (0.2-1.0); CO2 27.8 mmol/L (21.0-32.0); CREATININE 0.97 mg/dL (0.55-1.02); Chloride 104 mmol/L (98-107); Estimated GFR 58.38 (mL/min/1.73m2); Glucose 112 mg/dL (70-100); Potassium 3.9 mmol/L (3.5-5.1); Sodium 141 mmol/L (136-145)
[2018-06-07 17:57] LABS: Troponin I < 0.02 ng/mL (0.00-0.06)
== END 2018-06-07 18:56 | disposition home or self-care (01) ==
PROVIDERS: Emergency Provider Physician Assistant; PCP Nurse Practitioner Family
DX: I47.1 Supraventricular tachycardia (principal); I10 Essential (primary) hypertension
CPT/HCPCS: 36415; 80053; 93005; 96374; 99285; 83735; 84484; 85025; 93010

== ENCOUNTER 2018-06-12 18:40 | Emergency (ER) | payer OTHER, MEDICAID, SELFPAY ==
[2018-06-12] VITALS (13 sets, daily range): BP systolic 140–144; BP diastolic 80–94; PULSE 82–198; RESP 14–31; TEMP 36.3–36.6; O2SAT 93–97
[2018-06-12 19:17] LABS: Abs Immature Grans 0.06 k/cumm (0.0-0.09); Absolute Eosinophil Count 0.32 k/cumm (0.0-0.7); Absolute Monocyte Count 0.93 k/cumm (0.11-0.7); Absolute Neutrophil Count 9.09 k/cumm (1.2-6.7); Basophils % 0.4; Eosinophils % 2.4; HCT 44.2 % (36.0-46.0); HGB 15.1 g/dL (12.0-15.5); Immature Grans % 0.4; Lymphocytes % 22.5; Mean Corp. HGB Concentration 34.2 g/dL (32.0-36.0); Mean Corpuscular Hemoglobin 31.7 pg (27.0-33.0); Mean Corpuscular Volume 92.9 fL (80-95); Mean Platelet Volume 9.9 fL (8.0-11.0); Monocytes % 6.9; Neutrophils % 67.4; Platelet Count 280 x1000/uL (130-400); RBC 4.76 m/cumm (4.00-5.20); RBC Distribution Width 12.4 % (11.7-14.6); White Blood Cell Count 13.49 k/cumm (4.4-10.8)
[2018-06-12 19:19] LABS: Absolute Basophil Count 0.05 k/cumm (0.0-0.2); Absolute Lymphocyte Count 3.04 k/cumm (1.2-3.4)
[2018-06-12 19:41] LABS: ALT 22 U/L (12-78); AST 15 U/L (15-37); Albumin 3.8 g/dL (3.4-5.0); Alkaline Phosphatase 147 U/L (46-116); BUN 18 mg/dL (7-18); Bilirubin, Total 0.2 mg/dL (0.2-1.0); CREATININE 0.97 mg/dL (0.55-1.02); Chloride 104 mmol/L (98-107); Estimated GFR 58.38 (mL/min/1.73m2); Glucose 141 mg/dL (70-100); Potassium 4.1 mmol/L (3.5-5.1); Sodium 140 mmol/L (136-145); TSH (W/Ref FT4) 6.48 uIU/mL (0.358-3.74); Total Protein 8.1 g/dL (6.4-8.2); Troponin I < 0.02 ng/mL (0.00-0.06)
[2018-06-12 19:44] LABS: PHENYTOIN (DILANTIN) 9.4 ug/mL (10.0-20.0)
[2018-06-12 19:46] LABS: Calcium 8.9 mg/dL (8.5-10.1)
[2018-06-12 20:04] LABS: FREE T4 1.13 ng/dL (0.76-1.46)
--- NOTE | 2018-06-12 20:20 | DI.RAD_ITS ---
SYMPTOMS/DIAGNOSIS: SVT PORTABLE AP CHEST: Comparison 11/11/16. The heart size and pulmonary vasculature are within normal limits. The lungs are free of infiltrates, effusions or pneumothoraces. The bones are intact. IMPRESSION: No acute pulmonary process.
--- NOTE | 2018-06-12 20:38 | DI.VRAD_ITS ---
EXAM: XR Chest, 1 View EXAM DATE/TIME: 06/12/2018 7:13 PM CLINICAL HISTORY: 63 years old, female; Signs and symptoms; Other: Svt TECHNIQUE: XR of the chest, 1 view. COMPARISON: [place] PORTABLE CHEST ONE VIEW 11/11/2016 5:08 AM FINDINGS: Lungs: There is poor ventilation of the lungs, accounting for mild diffuse increase in pulmonary parenchymal density. No acute interstitial or air space disease grossly noted. Pleural space: Unremarkable. No pleural effusion. No pneumothorax. Heart/Mediastinum: Cardiomediastinal silhouette is stable in size and configuration, however slightly magnified due to technique. Bones/joints: Stable degenerative changes in the bilateral a.c. joints. No acute skeletal pathology otherwise noted. IMPRESSION: Negative for acute thoracic pathology. Dictated and Authenticated by: Jose Casiano MD. Ordering:SANIA Tay MD
--- NOTE | 2018-06-12 20:49 | W.ED.GENAD ---
Discharge Plan Disposition Patient Disposition: HOME Condition: Good Discharge Details Chief Complaint: Palpitatns Clinical Impression: Supraventricular tachycardia Primary Care Provider: Natividad Almeida ED Provider: Jasvir Gonzalez Home Meds and New Rx's Prescriptions: No Action phenytoin sodium extended [Dilantin Extended] 100 MG capsule 3 cap PO DAILY Qty: 270 RF: 3 verapamil 240 MG capsule,ext rel. pellets 24 hr 240 mg PO BID Qty: 180 RF: 3 atenolol 50 mg tablet 25 mg PO DAILY Qty: 45 RF: 3 Mirena 1 EACH intrauterine device 1 ea Intrauterine DAILY RF: 0 Discharge Instructions Instructions: Supraventricular Tachycardia (ED) Additional Instructions: Please take your home medications as directed. Please follow-up immediately with your underground distribution engineer. We will help schedule an outpatient appointment. If you notice any worsening of your symptoms, or any new symptoms such as vomiting, diarrhea, fever, chills, shortness of breath, chest pain, numbness, weakness, or fainting , please return immediately to the emergency department for reevaluation. Please follow up with your primary care provider as soon as possible for reassessment and reevaluation. As always, it was a pleasure participating in your medical care today. Referrals: Natividad Almeida, ANIMAL SHELTER SUPERVISOR [Primary Care Provider] - Medical Decision Making This is a pleasant 63-year-old female with a history of SVT who presents today for evaluation of SVT. She has had 2-3 episodes in the last few days. She has not seen a underground distribution engineer for over 2 years. She is supposed to see her PCP today in regards to these episodes, however she was not able to make it to the appointment. She attempted Valsalva techniques at home but had no success. Physical exam demonstrated no significant abnormalities, she had no red flags of chest tightness, shortness of breath, arm neck or shoulder pain, difficulty breathing. She had no lightheadedness or syncope. The patient is resistant to adenosine, as well as Cardizem in the past. She has tolerated verapamil well. She normally tolerates 5 mg with complete resolution. Here in the ED 5 mg were given, and the push was given over 3 minutes and within 30 seconds after completion of the final push she had complete resolution of her symptomatology. Repeat EKG demonstrates sinus rhythm. No other abnormalities. Chest x-ray is negative for acute process. Laboratory workup is relatively benign. Mild elevation in white count, no bandemia. Electrolytes are normal, TSH is slightly elevated, however free T4 is normal. Phenytoin level is slightly subtherapeutic, but otherwise benign, troponin is less than 0.02. I did discuss with the patient potential overnight observation, however she made it explicitly clear that she would not be staying overnight. I did discuss with her the importance of close follow-up with cardiology and we will refer for case management for cardiology follow-up. I discussed the importance of avoiding caffeine, sugar, and chocolate discussed red flags which to return. I have extensively reviewed the treatment plan and discharge instructions with the patient. I have addressed all patient concerns at this time. The patient was made aware of what symptoms to monitor for that would warrant a return to the emergency department. Discussed the plan with the patient, they demonstrate verbal understanding and agreement with our assessment and plan at this time. EKG 18: 48 Rate 192, tachycardia, slightly wide QRS, QRS 138, EKG suggestive of SVT. Review of EKG from 06/05/18 demonstrates EKG with similar findings during the episode of SVT, which did respond to verapamil. EKG 20: 29 Rate 84, sinus rhythm, no ST elevations or depressions, intervals normal, inverted T waves in V1, no Q waves, normal EKG COMPARISON: [place] PORTABLE CHEST ONE VIEW 11/11/2016 5:08 AM FINDINGS: Lungs: There is poor ventilation of the lungs, accounting for mild diffuse increase in pulmonary parenchymal density. No acute interstitial or air space disease grossly noted. Pleural space: Unremarkable. No pleural effusion. No pneumothorax. Heart/Mediastinum: Cardiomediastinal silhouette is stable in size and configuration, however slightly magnified due to technique. Bones/joints: Stable degenerative changes in the bilateral a.c. joints. No acute skeletal pathology otherwise noted. IMPRESSION: Negative for acute thoracic pathology. Dictated and Authenticated by: Jose Casiano MD. HPI General Date/Time Provider Initiated Documentation: 06/12/18 18:50. HPI Narrative: This is a 63-year-old female with a past medical history of SVT which is resistant to adenosine, and Cardizem but does respond to verapamil. She currently takes 480 mg of verapamil for her chronic tachycardia in addition to 50 mg of atenolol. Over the last 2-3 weeks she has had 3 episodes of SVT. She presents today for evaluation of SVT. The patient states that roughly an hour prior to arrival she suddenly felt palpitations, but she had no associated lightheadedness, chest pain, or shortness of breath. She attempted Valsalva maneuvers at home but had no improvement of her symptoms. She denies any other complaints at this time. She states that the symptoms feel identical to her previous episodes of SVT. She did have some caffeine earlier today, you should you sugary meals, she is unsure if this played any role in her symptoms. She denies any other complaints, or modifying factors. She states that she has been taking her home cardiac medications as directed, and never misses a dose, and never changes at times that she takes it. She denies any other complaints at this time. She denies any family history of significant cardiac disease, she denies any history of PEs. Denies PE risk factors such as recent long car rides, immobilization, recent surgery, prior history of DVT or PE, family history of PE or DVT, morbid obesity, exogenous estrogen and smoking, hemoptysis, history of cancer. Related Data Home Medications Medication Instructions Recorded Confirmed phenytoin sodium extended 3 cap PO DAILY #270 tab-cap NS 09/03/17 06/05/18 [Dilantin Extended] verapamil 240 mg PO BID #180 [email or web address] 09/03/17 06/05/18 Mirena 1 ea INTRAUTERINE DAILY 09/17/17 06/05/18 atenolol 50 mg tablet 25 mg PO DAILY #45 tab-cap 02/04/18 06/05/18 Previous Rx's Medication Instructions Recorded phenytoin sodium extended 3 cap PO DAILY #270 tab-cap NS 09/03/17 [Dilantin Extended] verapamil 240 mg PO BID #180 [email or web address] 09/03/17 atenolol 50 mg tablet 25 mg PO DAILY #45 tab-cap 02/04/18 Allergies Allergy/AdvReac Type Severity Reaction Status Date / Time Sulfa (Sulfonamide Allergy Unknown CHILDHOOD Unverified 06/05/18 20:08 Antibiotics) ALLERGY adenosine AdvReac Mild felt like Unverified 06/05/18 20:08 she was going to have seizure General Stated Complaint: Palpitatns RAMOS: 2 Review of Systems Review of Systems All systems reviewed & are unremarkable except as noted in HPI and below [facility] Social History Smoking/Tobacco Use Status: Never Exam Narrative Exam Narrative: 1.Const: Well-nourished, Well-developed, appearing stated age 2.Eyes: PERRL, no conjunctival injection, and symmetrical lids. 3.ENT: Atraumatic external nose and ears. Moist MM. Neck: Symmetric, trachea midline, No thyromegaly. 4.CVS: +S1/S2, notably tachycardiac no murmurs or gallops. Peripheral pulses 2+ and equal in all extremities. Brisk capillary refill in all extremities. 5.RESP: Unlabored respiratory effort. Clear to auscultation bilaterally. No wheezes rales or rhonchi 6.GI: Soft, Nontender/Nondistended, No hepatosplenomegaly. No guarding or rebound. 7.MSK: Normocephalic/Atraumatic, Extremities w/o deformity or ttp No cyanosis or clubbing, Normal movement of all extremities. No calf tenderness. 8.Skin: Warm, Dry. No rashes or lesions. 9.Neuro: alternative financing specialist II-XII grossly intact. Sensation grossly intact, no focal neurologic deficits. 10.Psych: (AAO) x3. Appropriate mood and affect Course Vital Signs Temperature 36.3 C L 06/12/18 18:44 Pulse 191 H 06/12/18 18:44 Respiratory Rate 24 06/12/18 18:44 Blood Pressure 144/94 H 06/12/18 18:44 Pulse Oximetry 96 06/12/18 18:44 Temperature 36.3 C L 06/12/18 18:44 Temperature Source Temporal Artery Scan 06/12/18 18:44 Pulse 191 H 06/12/18 18:44 Respiratory Rate 24 06/12/18 18:44 Blood Pressure 144/94 H 06/12/18 18:44 Pulse Oximetry 96 06/12/18 18:44 Oxygen Delivery Method Room Air 06/12/18 18:44 Oxygen Flow Rate 0 06/12/18 18:44 Pain Level 0 06/12/18 18:44 Lab/Test Results Lab/Test Results: Laboratory Tests Range/Units 06/12/18 06/12/18 06/12/18 19:05 19:05 19:05 WBC (4.4-10.8) k/cumm 13.49 H RBC (4.00-5.20) m/cumm 4.76 Hgb (12.0-15.5) g/dL 15.1 Hct (36.0-46.0) % 44.2 MCV (80-95) fL 92.9 MCH (27.0-33.0) pg 31.7 MCHC (32.0-36.0) g/dL 34.2 RDW (11.7-14.6) % 12.4 Plt Count (130-400) x1000/uL 280 MPV (8.0-11.0) fL 9.9 Immature Gran % 0.4 Neutrophils % 67.4 Lymphocytes % 22.5 Monocytes % 6.9 Eosinophils % 2.4 Basophils % 0.4 Absolute Neutrophils (1.2-6.7) k/cumm 9.09 H Absolute Lymphocytes (1.2-3.4) k/cumm 3.04 Absolute Monocytes (0.11-0.7) k/cumm 0.93 H Absolute Eosinophils (0.0-0.7) k/cumm 0.32 Absolute Basophils (0.0-0.2) k/cumm 0.05 Sodium (136-145) mmol/L 140 Potassium (3.5-5.1) mmol/L 4.1 Chloride (98-107) mmol/L 104 Carbon Dioxide (21.0-32.0) mmol/L 25.0 Anion Gap (3-11) mmol/L 11.0 BUN (7-18) mg/dL 18 Creatinine (0.55-1.02) mg/dL 0.97 Estimated GFR/1.73 m2 (mL/min/1.73m2) 58.38 Glucose (70-100) mg/dL 141 H Calcium (8.5-10.1) mg/dL 8.9 Total Bilirubin (0.2-1.0) mg/dL 0.2 AST (15-37) U/L 15 ALT (12-78) U/L 22 Alkaline Phosphatase (46-116) U/L 147 H Troponin I (0.00-0.06) ng/mL < 0.02 Total Protein (6.4-8.2) g/dL 8.1 Albumin (3.4-5.0) g/dL 3.8 TSH (0.358-3.74) uIU/mL 6.48 H Free T4 (0.76-1.46) ng/dL 1.13 Phenytoin (10.0-20.0) ug/mL 9.4 L
--- NOTE | 2018-06-13 08:03 | PDOC.ERCMPRO ---
Care Management Progress Note 06/13-Dr. Gonzalez requested assistance with a cardiology f/u in one week for reoccuring SVT, meds don't help. Referral faxed to cardiology this am.
== END 2018-06-12 21:40 | disposition home or self-care (01) ==
PROVIDERS: Emergency Provider Student in an Organized Health Care Education/Training Program; PCP Nurse Practitioner Family
DX: I47.1 Supraventricular tachycardia (principal); I10 Essential (primary) hypertension
CPT/HCPCS: 36415; 80053; 93005; 96374; 99285; 71045; 80185; 84439; 84443; 84484; 85025; 93010; 99284

== ENCOUNTER 2018-06-18 20:27 | Emergency (ER) | payer OTHER, SELFPAY ==
[2018-06-18] VITALS (12 sets, daily range): BP systolic 127–154; BP diastolic 79–99; PULSE 75–182; RESP 10–22; TEMP 36.9; O2SAT 90–99
--- NOTE | 2018-06-18 20:31 | ED.GENADUL_ITS ---
Discharge Plan Disposition Patient Disposition: HOME Condition: Good Discharge Details Chief Complaint: Palpitatns Clinical Impression: Supraventricular tachycardia Primary Care Provider: Natividad Almeida ED Provider: Isidro Maldonado Meds and New Rx's Prescriptions: Continued phenytoin sodium extended [Dilantin Extended] 100 MG capsule 3 cap PO DAILY Qty: 270 RF: 3 verapamil 240 MG capsule,ext rel. pellets 24 hr 240 mg PO BID Qty: 180 RF: 3 Mirena 1 EACH intrauterine device 1 ea Intrauterine DAILY RF: 0 Changed atenolol 50 mg tablet 50 mg PO DAILY Qty: 45 RF: 3 Discharge Instructions Additional Instructions: Continue your verapamil twice a day at the regular dose. Increase your atenolol to 50 mg once a day and begin in the morning. I [facility]. They will try to get you into the clinic in the next 1-2 weeks. Return to the emergency department if you have any recurrent symptoms or problems. Referrals: [facility] [Provider Group] Medical Decision Making Patient presents with SVT. She is typically in a wide-complex tachycardia. Tonight she has narrow complex SVT at 170. Her EKG has rate related ST depressions. She is asymptomatic otherwise except for palpitations and fast heart rate. IV is established. Fluids were hung. 5 mg of verapamil given. Within 1-2 minutes of receiving this she converted to a sinus rhythm. I am not repeating labs bebe as she has now had them multiple times. I am going to speak to cardiology to see if we can adjust medications and get her in sooner. Repeat EKG is sinus rhythm at 78 with normal intervals and axis. There are no ST changes. Patient has remained in sinus rhythm. Vital signs have been good. I discussed with cardiology, Dr. Trujillo. Will increase patient's atenolol to 50 mg daily. Continue verapamil at 240 mg twice a day. He will try to get her into be seen in the clinic in the next 1-2 weeks. Return to ED for recurrent symptoms. ECG Data Attestation: I personally reviewed and interpreted this ECG (s) as follows: Prior ECG tracings: available for review Interpretation: EKG #1 - narrow complex tachycardia at a rate of [address] depression. EKG #2 -normal sinus rhythm at a rate of 78. Normal intervals and axis. Normal ST segment HPI General Mode of arrival: ambulatory . Date/Time Provider Initiated Documentation: 06/18/18 20:30 . Limitations to Documentation: no limitations . Information obtained by: patient . HPI Narrative: Patient presents with recurrent SVT. This is patient's fourth visit to the ED for same in the last couple of weeks. She has known history of SVT with aberrant conduction that responds only to verapamil. She is on verapamil twice a day as well as metoprolol. She was seen by primary care today. She has been referred to cardiology but does not see them until July. She tried vagal maneuvers and carotid massage at home. She has been in the SVT for about an hour now. She has no chest pain or shortness of breath. She has not been ill. She has not missed any doses of medications. She has been avoiding stimulants. Related Data Home Medications Medication Instructions Recorded Confirmed phenytoin sodium extended 3 cap PO DAILY #270 tab-cap NS 09/03/17 06/18/18 [Dilantin Extended] verapamil 240 mg PO BID #180 [email or web address] 09/03/17 06/18/18 Mirena 1 ea INTRAUTERINE DAILY 09/17/17 06/18/18 atenolol 50 mg PO DAILY #45 tab-cap 06/18/18 06/18/18 Previous Rx's Medication Instructions Recorded phenytoin sodium extended 3 cap PO DAILY #270 tab-cap NS 09/03/17 [Dilantin Extended] verapamil 240 mg PO BID #180 [email or web address] 09/03/17 atenolol 50 mg PO DAILY #45 tab-cap 06/18/18 Allergies Allergy/AdvReac Type Severity Reaction Status Date / Time Sulfa (Sulfonamide Allergy Unknown CHILDHOOD Unverified 06/18/18 20:49 Antibiotics) ALLERGY adenosine AdvReac Mild felt like Unverified 06/18/18 20:49 she was going to have seizure General RAMOS: 2 Review of Systems Constitutional Denies chills, Denies fever(s), Denies headache(s), Denies malaise and Denies weakness ENT Denies headache(s), Denies neck pain and Denies sore throat Cardiovascular Denies chest pain, Denies diaphoresis, Denies syncope, Reports palpitations and Denies dyspnea Respiratory Denies cough and Denies dyspnea Gastrointestinal Denies abdominal pain, Denies diarrhea, Denies nausea and Denies vomiting Musculoskeletal Denies neck pain and Denies numbness Integumentary/Breasts Denies rash Neurologic Denies syncope, Denies headache(s), Denies focal weakness, Denies numbness and Denies weakness Endocrine Reports palpitations [facility] Medical History Endometrial hyperplasia without atypia, complex (Chronic 10/08/16) Epilepsy (Chronic 05/20/75) Hypertension (Chronic) Morbid obesity (Chronic) Paroxysmal SVT (supraventricular tachycardia) (Chronic 05/20/94) Postmenopausal bleeding (Chronic) Surgical History section (Inactive) Cholecystectomy (Inactive ~1989) Endometrial Biopsy (Inactive 09/26/16) Ligation of fallopian tube (Inactive ~04/1986) Tonsillectomy (Inactive ~1963) Social History Smoking/Tobacco Use Status: Never Exam Const General: cooperative and no acute distress Nutritional Appearance: obese Orientation: alert and oriented x3 HENMT Head: normocephalic and atraumatic Neck Neck: trachea midline and supple Resp Effort & Inspection: normal respiratory effort Auscultation: clear to auscultation bilaterally Cardio Rate: tachycardic Rhythm: regular rhythm Heart Sounds: S1 normal and S2 normal Skin General skin exam: no rashes or lesions noted Neuro General: alert, oriented x3, gait normal, no focal motor deficits and CN's II-XI intact bilaterally Extrem General: edema Laterality: bilateral (LE) Critical Care Time Critical Care Time: Yes Total Critical Care Time: 35 Attestation: treatment of SVT
[2018-06-18] MEDS: Verapamil 5 MG/2 ML VIAL (20:45)
[2018-06-18] MEDS: Normal Saline 1,000 ML 1000 ML IV (21:00)
== END 2018-06-18 22:39 | disposition home or self-care (01) ==
PROVIDERS: Emergency Provider Emergency Medicine; PCP Nurse Practitioner Family
DX: I47.1 Supraventricular tachycardia (principal)
CPT/HCPCS: 93005; 96361; 96374; 96376; 99284; 93010

== ENCOUNTER 2018-08-11 10:49 | Outpatient (CLI) | payer MEDICAID, SELFPAY | END 2018-08-11 11:09 | PROVIDERS: PCP Nurse Practitioner Family; Visit Provider Internal Medicine Interventional Cardiology | DX: I47.1 Supraventricular tachycardia (principal); E66.8 Other obesity | CPT/HCPCS: 93005; 93010 ==

== ENCOUNTER 2018-11-02 18:44 | Emergency (ER) | payer MEDICAID, SELFPAY ==
[2018-11-02] VITALS (35 sets, daily range): BP systolic 106–128; BP diastolic 47–85; PULSE 75–177; RESP 12–22; TEMP 36.5; O2SAT 92–98
--- NOTE | 2018-11-02 18:57 | ED.GENADUL_ITS ---
Discharge Plan Disposition Patient Disposition: HOME Discharge Details Chief Complaint: Palpitatns Clinical Impression: SVT (supraventricular tachycardia) Primary Care Provider: Natividad Almeida ED Provider: Jann Camacho Home Meds and New Rx's Prescriptions: Continued verapamil 240 mg capsule,ext rel. pellets 24 hr 240 mg PO BID Qty: 180 RF: 3 atenolol 50 mg tablet 50 mg PO DAILY Qty: 90 RF: 4 phenytoin sodium extended [Dilantin Extended] 100 mg capsule 300 mg PO DAILY Qty: 270 RF: 4 Mirena 1 EACH intrauterine device 1 ea Intrauterine DAILY RF: 0 Discharge Instructions Instructions: Supraventricular Tachycardia (ED) Additional Instructions: Please follow-up with cardiology. Call for an appointment. Please contact your primary care physician to arrange follow-up. Return to the ER for any worsening or new concerning symptoms. Referrals: Natividad Almeida NP [Primary Care Provider] - Medical Decision Making 20:15 -- 63-year-old female with history of paroxysmal SVT here with SVT that started around 6 PM tonight requesting treatment with verapamil IV which is worked in with prior episodes in the past. Blood pressure is normal. Initial ECG was reviewed and interpreted by me: SVT 174 bpm, diffuse ST depression. Patient was administered verapamil 5 mg IV and successfully cardioverted to a sinus rhythm. Second ECG was reviewed and interpreted by me: Sinus rhythm 89 bpm, normal axis, ST depression resolved. Labs reviewed and mild leukocytosis noted. No signs or symptoms of acute infectious process. Suspect reactive. Anion gap of 14.5 noted. Will give IVF fluid blous. Plan for repeat chem. TSH is elevated. Free T4 pending. --Free T4 within normal limits. Repeat chemistry after fluid reveals closure of anion gap. Patient is remained stable here in the emergency department. Disposition decision was made weighing the risks and benefits of hospitalization versus outpatient treatment, the risk for further decompensation, and the patient's wishes. The patient was stable and requested discharge. Prior to discharge, my usual and customary return precautions were reviewed with the patient - this included follow-up instructions and reason to return to the emergency department if condition worsens, does not improve as expected, or other new concerns arise. HPI General Mode of arrival: ambulatory . Date/Time Provider Initiated Documentation: 11/02/18 18:49 . Limitations to Documentation: no limitations . Information obtained by: patient . HPI Narrative: 63-year-old female with history of paroxysmal SVT, hypertension, morbid obesity, endometrial hyperplasia, epilepsy, presents with chief complaint of palpitations. Patient notes palpitations started around 6 PM today. Patient notes this is a chronic intermittent problem for her. She is typically able to control her seizures with an oral dose of verapamil 240 mg. She attempted this dose today and it did not resolve her symptoms. Palpitations are severe. No associated chest pain or shortness of breath. Patient notes that verapamil 5 mg IV has been given in the past and resulted in success cardioversion. Patient is requesting this treatment at this time. Related Data Home Medications Medication Instructions Recorded Confirmed Mirena 1 ea INTRAUTERINE DAILY 09/17/17 11/02/18 verapamil ER 240 mg 24 hr 240 mg PO BID #180 [email or web address] 09/01/18 11/02/18 capsule,extended release atenolol 50 mg tablet 50 mg PO DAILY #90 tab-cap 09/10/18 11/02/18 Dilantin Extended 100 mg capsule 300 mg PO DAILY #270 tab-cap NS 10/02/18 11/02/18 Previous Rx's Medication Instructions Recorded verapamil ER 240 mg 24 hr 240 mg PO BID #180 [email or web address] 09/01/18 capsule,extended release atenolol 50 mg tablet 50 mg PO DAILY #90 tab-cap 09/10/18 Dilantin Extended 100 mg capsule 300 mg PO DAILY #270 tab-cap NS 10/02/18 Allergies Allergy/AdvReac Type Severity Reaction Status Date / Time Sulfa (Sulfonamide Allergy Unknown CHILDHOOD Unverified 11/02/18 19:15 Antibiotics) ALLERGY adenosine AdvReac Mild felt like Unverified 11/02/18 19:15 she was going to have seizure General RAMOS: 2 Review of Systems Review of Systems All systems reviewed & are unremarkable except as noted in HPI and below Cardiovascular Denies chest pain, Reports irregular heart rhythm and Denies dyspnea Respiratory Denies cough and Denies dyspnea PFSH Medical History Epilepsy (Chronic) Paroxysmal SVT (supraventricular tachycardia) (Inactive) Endometrial hyperplasia with atypia (Inactive 10/08/16) Essential hypertension (Chronic 02/19/13) Morbid obesity (Inactive) Surgical History section (Inactive) Cholecystectomy (Inactive ~1989) Endometrial Biopsy (Inactive 09/26/16) Ligation of fallopian tube (Inactive ~04/1986) Tonsillectomy (Inactive ~1963) Family History Mother Essential hypertension Diabetes Alcohol abuse Depression Hyperlipidemia COPD (chronic obstructive pulmonary disease) Father Essential hypertension Prostate cancer Alcohol abuse Essential hypertension Personal history of malignant neoplasm Sister Essential hypertension Brother Essential hypertension Depression Grandfather Essential hypertension Depression Heart disease Hyperlipidemia Grandfather Prostate cancer Asthma Grandmother Essential hypertension Neoplasm Breast cancer Stroke Grandmother Essential hypertension Stroke Son No problems noted. Son Diffuse cerebral atrophy Hypoparathyroidism Developmental delay Son No problems noted. Other Skin cancer Social History Smoking/Tobacco Use Status: Never Alcohol Intake: never Drug use: Never Do you feel safe at home: Yes Do you feel safe in your relationship?: Yes Exam Const General: cooperative and well developed HENMT Head: normocephalic and atraumatic Mouth: moist mucous membranes Eyes Conjunctivae: normal conjunctivae Sclera: normal sclerae Neck Neck: trachea midline and supple Resp Auscultation: clear to auscultation bilaterally, no rales, no rhonchi and no wheezes Cardio Jugular venous pressure: no JVD Rate: tachycardic Rhythm: regular rhythm GI Palpation: soft, not firm, no guarding, no masses, not rigid and nontender Skin General skin exam: no rashes or lesions noted Neuro General: alert, awake, oriented x3 and tone normal Extrem General: no edema Psych Appearance: grossly normal Mental Status: mental status grossly normal Speech and Movement: speech and movement normal Critical Care Time Critical Care Time: Yes Total Critical Care Time: 40 Attestation: I spent greater than 40 minutes addressing this patient's immediate life threats
[2018-11-02] MEDS: Normal Saline 1,000 ML 150 ML IV (18:58)
[2018-11-02] MEDS: Verapamil 5 MG/2 ML VIAL IVP (18:59)
[2018-11-02 19:29] LABS: Abs Immature Grans 0.05 k/cumm (0.0-0.09); Absolute Basophil Count 0.08 k/cumm (0.0-0.2); Absolute Eosinophil Count 0.48 k/cumm (0.0-0.7); Absolute Lymphocyte Count 3.39 k/cumm (1.2-3.4); Absolute Monocyte Count 0.93 k/cumm (0.11-0.7); Basophils % 0.7; Eosinophils % 4.1; HCT 43.8 % (36.0-46.0); HGB 14.7 g/dL (12.0-15.5); Immature Grans % 0.4; Lymphocytes % 28.9; Mean Corp. HGB Concentration 33.6 g/dL (32.0-36.0); Mean Corpuscular Hemoglobin 30.9 pg (27.0-33.0); Mean Platelet Volume 10.3 fL (8.0-11.0); Monocytes % 7.9; Platelet Count 279 x1000/uL (130-400); RBC 4.76 m/cumm (4.00-5.20); RBC Distribution Width 12.9 % (11.7-14.6); White Blood Cell Count 11.73 k/cumm (4.4-10.8)
[2018-11-02 19:37] LABS: ALT 24 U/L (12-78); AST 19 U/L (15-37); Albumin 3.8 g/dL (3.4-5.0); Alkaline Phosphatase 138 U/L (46-116); Anion Gap 14.5 mmol/L (3-11); BUN 18 mg/dL (7-18); Bilirubin, Total 0.2 mg/dL (0.2-1.0); CO2 22.5 mmol/L (21.0-32.0); CREATININE 1.13 mg/dL (0.55-1.02); Calcium 9.1 mg/dL (8.5-10.1); Chloride 104 mmol/L (98-107); Estimated GFR 48.95 (mL/min/1.73m2); Glucose 135 mg/dL (70-100); Potassium 4.2 mmol/L (3.5-5.1); Sodium 141 mmol/L (136-145); Total Protein 7.8 g/dL (6.4-8.2)
[2018-11-02 19:38] LABS: Troponin I < 0.02 ng/mL (0.00-0.06)
[2018-11-02 19:44] LABS: Magnesium 2.1 mg/dL (1.8-2.4); TSH (W/Ref FT4) 6.46 uIU/mL (0.358-3.74)
[2018-11-02 20:17] LABS: FREE T4 1.07 ng/dL (0.76-1.46)
[2018-11-02] MEDS: Normal Saline 1,000 ML 1000 ML IV (20:29)
[2018-11-02 21:46] LABS: BUN 18 mg/dL (7-18); CREATININE 0.92 mg/dL (0.55-1.02); Calcium 8.4 mg/dL (8.5-10.1); Chloride 108 mmol/L (98-107); Glucose 106 mg/dL (70-100); Potassium 4.1 mmol/L (3.5-5.1); Sodium 143 mmol/L (136-145)
== END 2018-11-02 21:58 | disposition home or self-care (01) ==
PROVIDERS: Emergency Provider Student in an Organized Health Care Education/Training Program; PCP Nurse Practitioner Family
DX: I47.1 Supraventricular tachycardia (principal); I10 Essential (primary) hypertension
CPT/HCPCS: 36415; 80048; 80053; 93005; 96361; 96374; 99284; 83735; 84439; 84443; 84484; 85025; 93010

== ENCOUNTER 2018-11-04 16:55 | Emergency (ER) | payer MEDICAID, SELFPAY ==
[2018-11-04] VITALS (47 sets, daily range): BP systolic 94–142; BP diastolic 51–105; PULSE 82–178; RESP 13–41; TEMP 36.7–36.8; O2SAT 90–100
--- NOTE | 2018-11-04 17:05 | W.ED.GENAD ---
Discharge Plan Disposition Patient Disposition: HOME Condition: Improving Discharge Details Clinical Impression: SVT (supraventricular tachycardia) Primary Care Provider: Natividad Almeida ED Provider: Lacie Rubin Home Meds and New Rx's Prescriptions: Continued verapamil 240 mg capsule,ext rel. pellets 24 hr 240 mg PO BID Qty: 180 RF: 3 atenolol 50 mg tablet 50 mg PO DAILY Qty: 90 RF: 4 phenytoin sodium extended [Dilantin Extended] 100 mg capsule 300 mg PO DAILY Qty: 270 RF: 4 Mirena 1 EACH intrauterine device 1 ea Intrauterine DAILY RF: 0 Discharge Instructions Instructions: Supraventricular Tachycardia (ED) Additional Instructions: Take your regular medications as directed. 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 Return immediately to the emergency department if you develop any worsening or new concerning symptoms. Discharge Data Discharge Date/Time-TO BE ENTERED AT DEPARTURE: 11/04/18 18:39 Discharge Physician: Lacie Rubin Medical Decision Making 63-year-old female with a history of SVT, HTN and seizure disorder who presents with complaint of tachycardia, palpitations consistent with her usual SVT that started while driving the car just prior to arrival. EKG on arrival noted a rate of 180 and appears consistent with a similar EKG pattern in the past which notes widened QRS consistent with SVT with aberrancy rather than the usual narrow QRS pattern. Remainder vitals within normal limits. Blood pressure 116/83. No signs of airway compromise. Patient has been seen in the ED multiple times for the same complaint and only responds to verapamil. She was seen here 2 days ago for same and converted after IV verapamil and was discharged home. Patient given 5 mg of verapamil IV on arrival. 1714 --patient converted to sinus rhythm. Heart rate 80s. EKG notes a rate of 86, sinus with less than [address] depression noted in lead I and aVL. No acute ST elevation. 183 --Screening labs ordered on arrival and unremarkable. Troponin negative. Patient had an elevated TSH but with normal free T4 2 days ago. Patient declined chest x-ray. Repeat EKG noted a rate of 84, sinus, and no acute ST elevation or depression. Patient feels much better and is requesting to go home. Patient states she feels that her SVT is related to her Mirena or hormonal as her symptoms lessened when she first had her Mirena placed in January and did not have another episode until May when she had a bleeding episode, and then again 2 times this week with return of light vaginal bleeding. Patient is instructed to follow-up with her primary care doctor, roofer vinyl coating as well as engine assembly supervisor to discuss continued management of her SVT. She is instructed to return here immediately with any worsening or new concerning symptoms. Medical Records Medical records reviewed: Yes I reviewed the patient's medical records. Lab Data Lab results reviewed: Yes I reviewed the patient's lab results. Laboratory Tests Range/Units 11/04/18 11/04/18 17:10 17:10 WBC (4.4-10.8) k/cumm 11.25 H RBC (4.00-5.20) m/cumm 4.59 Hgb (12.0-15.5) g/dL 14.5 Hct (36.0-46.0) % 42.3 MCV (80-95) fL 92.2 MCH (27.0-33.0) pg 31.6 MCHC (32.0-36.0) g/dL 34.3 RDW (11.7-14.6) % 12.6 Plt Count (130-400) x1000/uL 271 MPV (8.0-11.0) fL 10.2 Immature Gran % 0.3 Neutrophils % 59.5 Lymphocytes % 26.9 Monocytes % 8.1 Eosinophils % 4.5 Basophils % 0.7 Absolute Neutrophils (1.2-6.7) k/cumm 6.69 Absolute Lymphocytes (1.2-3.4) k/cumm 3.03 Absolute Monocytes (0.11-0.7) k/cumm 0.91 H Absolute Eosinophils (0.0-0.7) k/cumm 0.51 Absolute Basophils (0.0-0.2) k/cumm 0.08 Sodium (136-145) mmol/L 140 Potassium (3.5-5.1) mmol/L 3.9 Chloride (98-107) mmol/L 105 Carbon Dioxide (21.0-32.0) mmol/L 21.6 Anion Gap (3-11) mmol/L 13.4 H BUN (7-18) mg/dL 14 Creatinine (0.55-1.02) mg/dL 1.01 Estimated GFR/1.73 m2 (mL/min/1.73m2) 55.72 Glucose (70-100) mg/dL 136 H Calcium (8.5-10.1) mg/dL 8.8 Magnesium (1.8-2.4) mg/dL 1.9 Total Bilirubin (0.2-1.0) mg/dL 0.3 AST (15-37) U/L 19 ALT (12-78) U/L 26 Alkaline Phosphatase (46-116) U/L 129 H Troponin I (0.00-0.06) ng/mL < 0.02 Total Protein (6.4-8.2) g/dL 7.5 Albumin (3.4-5.0) g/dL 3.7 ECG Data Attestation: I personally reviewed and interpreted this ECG (s) as follows: Interpretation: #1 -- rate of 180, wide QRS, c/w pattern of SVT with aberrancy similar to previous EKGs. QTc 557. QRS 190. #2 -- rate of 86, sinus, Less than 1mm ST depression in lead I and aVL. No acute ST elevation. QTc 435. QRS 100. #3 --Rate of 84, sinus, no acute ST elevation or depression. QTc 449. QRS 100. HPI General Mode of arrival: ambulatory. Date/Time Provider Initiated Documentation: 11/04/18 17:03. Limitations to Documentation: no limitations. Information obtained by: patient. HPI Narrative: Patient is a 63-year-old female with a history of paroxysmal SVT well-known to the emergency department who presents with fluttering in her chest that started while driving just prior to arrival. States this is consistent with her usual episodes of SVT. She states she attempted her own Valsalva maneuvers which caused some shortness of breath but no improvement in the fluttering and palpitations. She denies any chest pain or shortness of breath at present. She denies any recent illness, fever, vomiting, diarrhea. She states she has been eating and drinking normally. She states she thinks that her episodes recently have to do with hormones as she had an episode 2 days ago for which she was seen in the emergency department and this was at the onset of some mild vaginal bleeding. She states her last episode prior to 2 days ago was in May when she also had some mild vaginal bleeding. She states she has a history of endometrial hyperplasia for which she had a Mirena placed in January. She states this initially helped her episodes of SVT and had not had an episode since January until May. She states she took her regular dose of verapamil this morning but had not yet taken her evening dose of verapamil. Related Data Home Medications Medication Instructions Recorded Confirmed Mirena 1 ea INTRAUTERINE DAILY 09/17/17 11/02/18 verapamil ER 240 mg 24 hr 240 mg PO BID #180 [email or web address] 09/01/18 11/02/18 capsule,extended release atenolol 50 mg tablet 50 mg PO DAILY #90 tab-cap 09/10/18 11/02/18 Dilantin Extended 100 mg capsule 300 mg PO DAILY #270 tab-cap NS 10/02/18 11/02/18 Previous Rx's Medication Instructions Recorded verapamil ER 240 mg 24 hr 240 mg PO BID #180 [email or web address] 09/01/18 capsule,extended release atenolol 50 mg tablet 50 mg PO DAILY #90 tab-cap 09/10/18 Dilantin Extended 100 mg capsule 300 mg PO DAILY #270 tab-cap NS 10/02/18 Allergies Allergy/AdvReac Type Severity Reaction Status Date / Time Sulfa (Sulfonamide Allergy Unknown CHILDHOOD Unverified 11/02/18 19:15 Antibiotics) ALLERGY adenosine AdvReac Mild felt like Unverified 11/02/18 19:15 she was going to have seizure General RAMOS: 2 Review of Systems Review of Systems All systems reviewed & are unremarkable except as noted in HPI and below Constitutional Reports as per HPI, Denies chills and Denies fever(s) Eyes Denies blurry vision ENT Denies dizziness, Denies sore throat and Denies throat swelling Cardiovascular Denies chest pain, Reports palpitations and Denies dyspnea Respiratory Denies cough and Denies dyspnea Gastrointestinal Denies abdominal pain, Denies diarrhea and Denies vomiting Genitourinary Denies hematuria and Denies dysuria Musculoskeletal Denies back pain and Denies numbness Integumentary/Breasts Denies lesions and Denies rash Neurologic Denies dizziness, Denies focal weakness and Denies numbness Endocrine Reports palpitations Allergic/Immunologic Denies throat swelling [facility] Medical History Epilepsy (Chronic) Paroxysmal SVT (supraventricular tachycardia) (Inactive) Endometrial hyperplasia with atypia (Inactive 10/08/16) Essential hypertension (Chronic 02/19/13) Morbid obesity (Inactive) Surgical History section (Inactive) Cholecystectomy (Inactive ~1989) Endometrial Biopsy (Inactive 09/26/16) Ligation of fallopian tube (Inactive ~04/1986) Tonsillectomy (Inactive ~1963) Family History Mother Essential hypertension Diabetes Alcohol abuse Depression Hyperlipidemia COPD (chronic obstructive pulmonary disease) Father Essential hypertension Prostate cancer Alcohol abuse Essential hypertension Personal history of malignant neoplasm Sister Essential hypertension Brother Essential hypertension Depression Grandfather Essential hypertension Depression Heart disease Hyperlipidemia Grandfather Prostate cancer Asthma Grandmother Essential hypertension Neoplasm Breast cancer Stroke Grandmother Essential hypertension Stroke Son No problems noted. Son Diffuse cerebral atrophy Hypoparathyroidism Developmental delay Son No problems noted. Other Skin cancer Social History Smoking/Tobacco Use Status: Never Alcohol Intake: never Drug use: Never Do you feel safe at home: Yes Do you feel safe in your relationship?: Yes Exam Const General: cooperative, healthy appearing and no acute distress HENMT Head: normal to inspection Face and sinus: normal facial exam Eyes General: appearance normal, both eyes and all related structures Pupils: PERRL EOM: EOM intact bilaterally Neck Neck: normal visual inspection and No submandibular swelling Lymphatic: no lymphadenopathy noted Chest Chest: normal inspection of the chest and no tenderness Resp Effort & Inspection: normal respiratory effort and able to speak in complete sentences Auscultation: clear to auscultation bilaterally Cardio Rate: tachycardic Rhythm: regular rhythm GI Inspection: normal to inspection Palpation: soft, not firm, not rigid and nontender Auscultation: normal bowel sounds Skin General skin exam: no rashes or lesions noted Neuro General: alert, awake and oriented x3 Cognition: normal cognition Speech: speech normal Motor: muscle tone normal throughout Sensory Exam: no sensory deficits noted Extrem General: normal to inspection, full ROM, normal capillary refill, no calf tenderness bilaterally and edema Laterality: bilateral (chronic b/l, nonpitting) Psych Appearance: grossly normal Mental Status: mental status grossly normal Speech and Movement: speech and movement normal Affect: normal affect
[2018-11-04] MEDS: Verapamil 5 MG/2 ML VIAL (17:10)
[2018-11-04 17:19] LABS: Abs Immature Grans 0.03 k/cumm (0.0-0.09); Absolute Basophil Count 0.08 k/cumm (0.0-0.2); Absolute Eosinophil Count 0.51 k/cumm (0.0-0.7); Absolute Lymphocyte Count 3.03 k/cumm (1.2-3.4); Absolute Monocyte Count 0.91 k/cumm (0.11-0.7); Absolute Neutrophil Count 6.69 k/cumm (1.2-6.7); Basophils % 0.7; Eosinophils % 4.5; HCT 42.3 % (36.0-46.0); HGB 14.5 g/dL (12.0-15.5); Immature Grans % 0.3; Lymphocytes % 26.9; Mean Corp. HGB Concentration 34.3 g/dL (32.0-36.0); Mean Corpuscular Hemoglobin 31.6 pg (27.0-33.0); Mean Corpuscular Volume 92.2 fL (80-95); Mean Platelet Volume 10.2 fL (8.0-11.0); Monocytes % 8.1; Neutrophils % 59.5; Platelet Count 271 x1000/uL (130-400); RBC 4.59 m/cumm (4.00-5.20); RBC Distribution Width 12.6 % (11.7-14.6); White Blood Cell Count 11.25 k/cumm (4.4-10.8)
[2018-11-04 17:39] LABS: ALT 26 U/L (12-78); AST 19 U/L (15-37); Albumin 3.7 g/dL (3.4-5.0); Alkaline Phosphatase 129 U/L (46-116); Anion Gap 13.4 mmol/L (3-11); BUN 14 mg/dL (7-18); Bilirubin, Total 0.3 mg/dL (0.2-1.0); CO2 21.6 mmol/L (21.0-32.0); CREATININE 1.01 mg/dL (0.55-1.02); Calcium 8.8 mg/dL (8.5-10.1); Chloride 105 mmol/L (98-107); Estimated GFR 55.72 (mL/min/1.73m2); Glucose 136 mg/dL (70-100); Magnesium 1.9 mg/dL (1.8-2.4); Potassium 3.9 mmol/L (3.5-5.1); Sodium 140 mmol/L (136-145); Total Protein 7.5 g/dL (6.4-8.2)
[2018-11-04 17:43] LABS: Troponin I < 0.02 ng/mL (0.00-0.06)
== END 2018-11-04 18:39 | disposition home or self-care (01) ==
PROVIDERS: Emergency Provider Physician Assistant; PCP Nurse Practitioner Family
DX: I47.1 Supraventricular tachycardia (principal); I10 Essential (primary) hypertension; Z53.29 Procedure and treatment not carried out because of patient's decision for other reasons
CPT/HCPCS: 36415; 80053; 93005; 99284; 83735; 84484; 85025; 93010

== ENCOUNTER 2019-03-12 01:37 | Outpatient (CLI) | payer MEDICAID, SELFPAY ==
[2019-03-12 10:31] LABS: Anion Gap 11.2 mmol/L (3-11); BUN 12 mg/dL (7-18); CO2 26.8 mmol/L (21.0-32.0); CREATININE 0.86 mg/dL (0.55-1.02); Calcium 9.3 mg/dL (8.5-10.1); Calculated LDL 112 mg/dL; Chloride 103 mmol/L (98-107); Cholesterol 216 mg/dL (50-200); Glucose 104 mg/dL (70-100); HDL Cholesterol 85 mg/dL (40-60); Sodium 141 mmol/L (136-145); TSH 4.56 uIU/mL (0.36-3.74); Triglyceride 98 mg/dL (30-150)
[2019-03-12 10:38] LABS: Hemoglobin A1C 5.5 % (4.5-6.2)
[2019-03-12 10:55] LABS: FREE T4 0.88 ng/dL (0.76-1.46)
[2019-03-13 11:09] LABS: Thyroglobulin Antibody <15 U/mL (<61); Thyroperoxidase Antibody <28 U/mL (<61)
== END 2019-03-12 01:57 ==
PROVIDERS: PCP Nurse Practitioner Family; Visit Provider Nurse Practitioner Family
DX: I10 Essential (primary) hypertension (principal)
CPT/HCPCS: 36415; 80048; 80061; 86376; 83036; 84439; 84443

== ENCOUNTER 2019-03-16 01:48 | Outpatient (CLI) | payer MEDICAID, SELFPAY ==
--- NOTE | 2019-03-16 11:15 | DI.MAMMO_ITS ---
EXAM: MG MAMMO SCREENING CLINICAL HISTORY: SCREENING Z12.31 TECHNIQUE: Bilateral full field digital CC and MLO mammographic images were obtained with 3D tomosyn thesis and utilizing computer aided detection (CAD). COMPARISON: Available for comparison. FINDINGS: Masses/Architectural Distortion: None seen. Microcalcifications: No suspicious pleomorphic-type are seen. Skin Thickening/Nipple Retraction: None. IMPRESSION: 1. No significant interval change with no specific features of malignancy noted. 2. Unless there is more urgent need, screening mammography is recommended, as per [employer] [employer] guidelines. ACR BI-RAD Category- 1 Negative Breast Density - Category A - Almost entirely fatty A negative radiographic report should not delay biopsy if a dominant or clinically suspicious mass is present. Up to ten percent of cancers are not identified on mammography. A negative report may reinforce clinical impression. Adenosis and dense breasts may obscure an underlying neoplasm. False positive reports average 6 to 10%.
== END 2019-03-16 02:08 ==
PROVIDERS: PCP Nurse Practitioner Family; Visit Provider Obstetrics & Gynecology
DX: Z12.31 Encounter for screening mammogram for malignant neoplasm of breast (principal)
CPT/HCPCS: 77063; 77067

== ENCOUNTER 2019-08-18 16:24 | Emergency (ER) | payer MEDICAID, SELFPAY ==
[2019-08-18] VITALS (21 sets, daily range): BP systolic 119–167; BP diastolic 81–106; PULSE 80–187; RESP 10–26; TEMP 36.3; O2SAT 94–99
[2019-08-18] MEDS: Verapamil 5 MG/2 ML VIAL ×2 (16:31→17:09)
--- NOTE | 2019-08-18 16:42 | NUR.NOTE ---
Nursing Note: Pacer pads placed per Dr. Camacho's orders
--- NOTE | 2019-08-18 16:45 | DI.RAD_ITS ---
EXAM: XR CHEST 2V PA LATERAL CLINICAL HISTORY: cough, palpitation TECHNIQUE: 2D digital imaging was performed. COMPARISON: XR PORTABLE CHEST AP from 06/12/2018 FINDINGS: The heart size is normal. There is a question mildly increased densities seen beneath the right hilu m versus overlying vascular structures. No effusions or pulmonary edema is seen. Flowing osteophyte s are noted in the spine. IMPRESSION: Question of right lower lobe infiltrate versus overlying structures DATA REPOSITORY: RADIATION DOSE DELIVERED:
--- NOTE | 2019-08-18 16:48 | ED.GENADUL_ITS ---
Discharge Plan Disposition Patient Disposition: HOME Condition: Stable Discharge Details Chief Complaint: Palpitatns Clinical Impression: SVT (supraventricular tachycardia), Viral illness Primary Care Provider: Natividad Almeida ED Provider: Sarah Jarrett Home Meds and New Rx's Prescriptions: No Action cholecalciferol (vitamin D3) 1,000 unit/drop drops PO DAILY RF: 0 verapamil 240 mg capsule,ext rel. pellets 24 hr 240 mg PO BID Qty: 180 RF: 3 atenolol 50 mg tablet 50 mg PO DAILY Qty: 90 RF: 4 phenytoin sodium extended [Dilantin Extended] 100 mg capsule 300 mg PO DAILY Qty: 270 RF: 4 Mirena 1 EACH intrauterine device 1 ea Intrauterine DAILY RF: 0 Discharge Instructions Instructions: Viral Syndrome (ED) Additional Instructions: Continue your daily medications. Rest activities as tolerated. Drink plenty of fluids. Conservative treatment for viral syndrome. If you develop any fever, increasing cough, increase in ill feeling please every check with your PCP as discussed. Please follow-up with cardiology locally as scheduled. For any alarming symptoms, return of tachycardia, increase in fever, ill feeling, weakness, chest pain or trouble breathing have immediate reevaluation in the emergency room as discussed Discharge Data Discharge Date/Time-TO BE ENTERED AT DEPARTURE: 08/18/19 18:41 Medical Decision Making This is a 64-year-old patient presenting to the emergency room for palpitations. Patient reports palpitation sensation of heart racing. Patient denies associated dizziness, lightheadedness or chest pain. Denies any nausea or vomiting. Patient is very familiar with the symptoms. Symptoms began approximately 1-1/2 hours prior to arrival while she was sitting on her deck speaking on the phone with her son. Patient reports she attempted vagal laying at home several times in attempts to avoid emergency room evaluation. Patient reports she has been seen in the emergency room for this several times and she has been feeling with SVT approximately 40 years. Patient reports this is very typical of her presentation of SVT. Patient reports she has had mild cough for the last 2 weeks with associated nasal congestion. Patient first majority of her symptoms have improved and she has a very mild dry cough which persists. Patient denies any associated difficulty being of shortness of breath or wheez ing. Denies any fevers throughout. Patient has been eating and drink without difficulty. Patient was feeling well prior to onset of her palpitations this afternoon. Again patient does report this is very typical of her presentation. Patient does have a history of essential hypertension, hyperlipidemia and epilepsy in addition to her paroxysmal SVT. Patient does have a BMI of 60. On the monitor patient's initial presentation is a heart rate of 180. Patient is speaking, mentating denying chest pain dizziness or lightheadedness. Patient does report obvious palpitation symptoms and symptoms of tachycardia however does not appear unstable at this time. Patient's initial blood pressure noted to be 141/101. Patient's O2 saturation 95%. Patient's initial EKG reveals heart rate of 180 with wide QRS and tachycardia. Likely SVT with aberrancy. EKG later reviewed with Dr. Jann Camacho. This is unchanged compared to previous symptomatic EKG on 11/04/2018. Patient given 5 mg of verapamil IV. After approximately 5 minutes patient's heart rate did improve to 150 but after 10 minutes no further improvement noted. Patient does report historically once or twice she has required a second dose of verapamil. Patient reports she last required a second dose of verapamil 1 year ago. Patient given an additional 5 mg of verapamil. Patient monitored at the bedside while giving verapamil and ultimately after a few minutes patient began to convert heart rate improved to the 80s to 90s. Patient symptoms entirely relieved. Patient ultimately converted after receiving 2.5 mg of verapamil and the additional 2.5 mg was held. Page to cardiology to discuss patient's initial presentation and ultimate plan of care. As patient continues to have breakthrough episodes of SVT. Reviewed previous cardiology notes most recently from Dr. Knox on 08/11/2018 approximately 1 year ago. Patient's repeat EKG at 1528 reveals sinus rhythm with a heart rate of 84, no ST segment changes or elevation. QTc 449 and AR interval 174. This was again reviewed with Dr. Jann Camacho. Patient continues to feel improved. Patient's labs reviewed. Mild leukocytosis is noted however this is typical wh en she has SVT breakthrough per her previous visits. Patient's electrolytes are within normal limit. Mild anion gap elevation. Patient's creatinine 1.11 but again given length of time patient was in SVT compared to her typical she has had very mild elevations up to 1.11 in the past. Patient is urinating without difficulty. I feel this is likely a transient bump due to mild stress to the kidneys half urinary and passive SVT at 180. Brings blood sugar 176, alk phos noted to be chronically elevated and seemingly unchanged from previous lab evaluations. TSH and free T4 were discussed. Patient reports she has had this followed several times with her PCP and does get it checked twice annually. Patient reports her PCP prefer not to treat this given her free T4 level is normal. Patient is familiar with TSH and free T4 abnormalities as she has discussed at length with her PCP. Spoke with cardiology Bertha Daily MD, of [facility]. Discussed case, patient's presentation, response to verapamil and she reviewed EKGs both during SVT as well as after rhythm broke. She reports compared to previous EKGs this is very similar. We discussed the possibility of V. tach versus SVT with abberancy. She feels given Brugada criteria this does not meet criteria for V. tach and given the response to verapamil and her history of SVT this is consistent with SVT and she feels this is appropriate for discharge home. Reviewed patient's labs. She feels comfortable continuing patient's daily medications. Recommends follow-up with cardiology as scheduled locally. Discharge at this time is clearly patient's preference. She is requesting to be discharged home. Patient's chest x-ray reveals pulmonary findings that could be related to crowding of bronchovascular structures, however developing bilateral perihilar interstitial disease and suggestion of developing airspace disease in the right infrahilar region is also of concern. Developing infectious pneumonic process to be entertained in the appropriate clinical setting. No other acute thoracic pathology is otherwise identified. Given patient's report of improving viral illness, no fever, improving cough, improving malaise I do not feel this patient is likely developing pneumonia however that she is likely improving. Patient was made aware of these chest x-ray findings and did recommend very prompt reevaluation for development of any fever, clinical worsening or concerns as discussed. Patient agrees with this plan of care and feels comfortable discharge home at this time. The patient was stable and requested discharge. Prior to discharge, my usual and customary return precautions were reviewed with the patient - this included follow-up instructions and reasons to return to the Emergency Department if conditions worsens, does not improve as expected, or other new concerns arise. HPI General Date/Time Provider Initiated Documentation: 08/18/19 16:29 . HPI Narrative: Is a 64-year-old patient presenting to the emergency room today for palpitations and sensation of her heart racing. Patient reports she was sitting on her deck in the sun talking to her son on the phone and had sudden onset of palpitations. Patient reports this is extremely familiar to her. Patient reports she has several episodes of SVT for which she does currently take verapamil. She is compliant with her daily medications. Patient reports she is had several emergency room visits for very similar sensation and this feels the same. Patient denies any chest pain at this time. Denies dizziness or lightheadedness. Patient reports onset approximately 1-1/2 hours prior to arrival. She tried giggling at home several times without effect. Patient denies abdominal pain, nausea, vomiting. Patient denies any back pain. No numbness or tingling in extremities. Patient does report cough approximately 2 weeks ago which lasted about 10 days, has mild dry persistant but significantly improved cough. Patient does report she had nasal congestion and a dry cough but no associated difficulty breathing or shortness of breath or wheezing. Denies any fever. Patient reports this is similar to her previous presentations to the emergency room and she typically responds only to verapamil. Related Data Home Medications Medication Instructions Recorded Confirmed Mirena 1 ea INTRAUTERINE DAILY 09/17/17 08/18/19 verapamil 240 mg 24 hr 240 mg PO BID #180 [email or web address] 09/01/18 08/18/19 capsule,extended release atenolol 50 mg tablet 50 mg PO DAILY #90 tab-cap 09/10/18 08/18/19 Dilantin Extended 100 mg capsule 300 mg PO DAILY #270 tab-cap NS 10/02/18 08/18/19 cholecalciferol (vitamin D3) 1,000 unit PO DAILY ml 06/29/19 06/29/19 unit/drop oral drops Previous Rx's Medication Instructions Recorded verapamil 240 mg 24 hr 240 mg PO BID #180 [email or web address] 09/01/18 capsule,extended release atenolol 50 mg tablet 50 mg PO DAILY #90 tab-cap 09/10/18 Dilantin Extended 100 mg capsule 300 mg PO DAILY #270 tab-cap NS 10/02/18 Allergies Allergy/AdvReac Type Severity Reaction Status Date / Time Sulfa (Sulfonamide Allergy Unknown CHILDHOOD Unverified 08/18/19 16:36 Antibiotics) ALLERGY adenosine AdvReac Mild felt like Unverified 08/18/19 16:36 she was going to have seizure General Stated Complaint: Palpitatns RAMOS: 2 Review of Systems All systems reviewed & are unremarkable except as noted in HPI and below Constitutional Constitutional: Denies chills, Denies fatigue, Denies fever(s), Denies headache(s) and Denies malaise ENT Ears, Nose, Mouth, and Throat: Denies headache(s) Neurologic Neurologic: Denies headache(s) Endocrine Endocrine: Denies fatigue PFSH Social History Smoking/Tobacco Use Status: Never Alcohol Intake: never Drug use: Never Household members: children Housing: house Do you feel safe at home: Yes Do you feel safe in your relationship?: Yes Female Reproductive History Menstrual control method: permanent sterilization (BTL) History History 3 Para 3 Hx # Term Pregnancies Multiple births Hx # Pregnancies Ectopic pregnancies AB induced Hx Number of Living Children 3 AB spontaneous Course Vital Signs Vital signs: Vital Signs Respiratory Rate 22 08/18/19 16:30 Pulse Oximetry 95 08/18/19 16:30 Temperature 36.3 C L 08/18/19 16:31 Temperature Source Temporal Artery Scan 08/18/19 16:31 Pulse 149 H 08/18/19 16:37 Pulse 151 H 08/18/19 16:37 Respiratory Rate 15 08/18/19 16:37 Respiratory Effort Non-Labored 08/18/19 16:35 Blood Pressure 120/82 08/18/19 16:37 Blood Pressure Mean 92 08/18/19 16:37 Blood Pressure Position Supine 08/18/19 16:31 Pulse Oximetry 96 08/18/19 16:37 Oxygen Delivery Method Room Air 08/18/19 16:31 Oxygen Flow Rate 0 08/18/19 16:31 Critical Care Time Critical Care Time Critical Care Time: Yes Total Critical Care Time: 40 Attestation: Please see MDM regarding specifics of critical care time however I spent greater than 40 minutes managing this patient's acute life-threatening concerns at the bedside, documenting, speaking with cardiology.
[2019-08-18 17:00] LABS: Abs Immature Grans 0.06 k/cumm (0.0-0.09); Absolute Basophil Count 0.09 k/cumm (0.0-0.2); Absolute Eosinophil Count 0.36 k/cumm (0.0-0.7); Absolute Lymphocyte Count 4.28 k/cumm (1.2-3.4); Absolute Monocyte Count 1.18 k/cumm (0.11-0.7); Basophils % 0.6; Eosinophils % 2.5; HCT 44.4 % (36.0-46.0); HGB 15.1 g/dL (12.0-15.5); Immature Grans % 0.4 %; Lymphocytes % 29.4; Mean Corpuscular Hemoglobin 31.6 pg (27.0-33.0); Mean Corpuscular Volume 92.9 fL (80-95); Mean Platelet Volume 9.7 fL (8.0-11.0); Monocytes % 8.1; Platelet Count 331 x1000/uL (130-400); RBC 4.78 m/cumm (4.00-5.20); RBC Distribution Width 12.7 % (11.7-14.6); White Blood Cell Count 14.57 k/cumm (4.4-10.8)
[2019-08-18] MEDS: Normal Saline 1,000 ML 1000 ML IV (17:06)
--- NOTE | 2019-08-18 17:08 | NUR.NOTE ---
Nursing Note: Pt converted after 2.5 mg of second dose/
[2019-08-18 17:19] LABS: ALT 26 U/L (14-59); AST 22 U/L (15-37); Alkaline Phosphatase 137 U/L (46-116); Anion Gap 15.1 mmol/L (3-11); BUN 15 mg/dL (7-18); Bilirubin, Total 0.3 mg/dL (0.2-1.0); CO2 22.9 mmol/L (21.0-32.0); CREATININE 1.11 mg/dL (0.55-1.02); Calcium 9.3 mg/dL (8.5-10.1); Chloride 102 mmol/L (98-107); Estimated GFR 49.81 (mL/min/1.73m2); Glucose 176 mg/dL (74-106); Potassium 3.7 mmol/L (3.5-5.1); Sodium 140 mmol/L (136-145); TSH (W/Ref FT4) 5.92 uIU/mL (0.36-3.74); Total Protein 8.3 g/dL (6.4-8.2)
[2019-08-18 17:20] LABS: Troponin I < 0.05 ng/Ml (<0.06)
[2019-08-18 17:36] LABS: FREE T4 0.86 ng/dL (0.76-1.46)
--- NOTE | 2019-08-18 18:05 | DI.VRAD_ITS ---
PROCEDURE INFORMATION: Exam: XR Chest, 2 Views Exam date and time: 08/18/2019 5:47 PM Age: 64 years old Clinical indication: Other: Cough, palpitation TECHNIQUE: Imaging protocol: XR of the chest Views: 2 views. COMPARISON: SC XR PORTABLE CHEST AP 06/12/2018 8:16 PM FINDINGS: Lungs: Subtle bilateral perihilar streak like opacities are appreciated. Patchy/ground-glass airspace opacity suggested in the right infrahilar region. Remainder of the lungs are clear. Pleural space: Unremarkable. No pleural effusion. No pneumothorax. Heart/Mediastinum: Unremarkable. No cardiomegaly. Bones/joints: No acute abnormality or aggressive osseous lesion. IMPRESSION: Pulmonary findings could be related to crowding of bronchovascular structures, however developing bilateral perihilar interstitial disease and suggestion of developing airspace disease in the right infrahilar region is also of concern. Developing infectious pneumonic process to be entertained in the appropriate clinical setting. No other acute thoracic pathology otherwise identified. Dictated and Authenticated by: Jose Casiano MD. Ordering:ARACELIS Smith MD
== END 2019-08-18 18:41 | disposition home or self-care (01) ==
PROVIDERS: Emergency Provider Physician Assistant; PCP Nurse Practitioner Family
DX: I47.1 Supraventricular tachycardia (principal); B34.9 Viral infection, unspecified; R91.8 Other nonspecific abnormal finding of lung field
CPT/HCPCS: 36415; 80048; 80053; 93005; 96361; 96365; 96374; 96375; 96376; 99284; 99291; 71046; 83735; 84439; 84443; 84484; 85025; 93010; J3475

== ENCOUNTER 2019-08-18 20:23 | Emergency (ER) | payer MEDICAID, SELFPAY ==
[2019-08-18] VITALS (13 sets, daily range): BP systolic 94–135; BP diastolic 49–86; PULSE 70–174; RESP 8–26; TEMP 36.7; O2SAT 95–97
--- NOTE | 2019-08-18 20:35 | W.ED.GENAD ---
Discharge Plan Disposition Patient Disposition: HOME Condition: Improving Discharge Details Chief Complaint: Palpitatns Clinical Impression: SVT (supraventricular tachycardia) Primary Care Provider: Natividad Almeida ED Provider: Dean Orr Home Meds and New Rx's Prescriptions: Continued cholecalciferol (vitamin D3) 1,000 unit/drop drops PO DAILY RF: 0 verapamil 240 mg capsule,ext rel. pellets 24 hr 240 mg PO BID Qty: 180 RF: 3 atenolol 50 mg tablet 50 mg PO DAILY Qty: 90 RF: 4 phenytoin sodium extended [Dilantin Extended] 100 mg capsule 300 mg PO DAILY Qty: 270 RF: 4 Mirena 1 EACH intrauterine device 1 ea Intrauterine DAILY RF: 0 Discharge Instructions Additional Instructions: Home to rest today. Continue small, frequent sips of fluids to maintain hydration. Return to the ER for recurrent palpitations, develop chest pain, or any other acute concerns. Continue your previously prescribed medications including atenolol and verapamil. Discharge Data Discharge Date/Time-TO BE ENTERED AT DEPARTURE: 08/18/19 22:50 Medical Decision Making 64-year-old female presents from home after visit to the ER earlier in the day when she had SVT which converted with verapamil. She states she now has about 1 hour of recurrent palpitations. No chest pain or syncope. No shortness of breath. She has had some change to sleep pattern recently as well has some increased stress. She arrives with a narrow complex tachycardia. Space on a radiation monitor, earlier note from today was reviewed, screening basic and magnesium obtained. Patient given verapamil 5 mg IV with subsequent conversion to normal sinus rhythm. She then did have an episode of recurrent SVT which converted back to sinus rhythm on its own. She was also given 5 mg of Lopressor and observed while receiving 1 L of fluid and 1 g of magnesium. Patient stabilized, continued to feel within normal limits without complaint. She was discharged home. She will continue regular medications. ECG Data Attestation: I personally reviewed and interpreted this ECG (s) as follows: Interpretation: EKG at 2029 hrs. narrow complex regular tachycardia consistent with supraventricular tachycardia. No ST segment changes. EKG #2 at 2053 hrs. reveals normal sinus rhythm, rate of 84, the QRS is narrow, there is no ST segment elevation present. QTC is 440. HPI General Mode of arrival: ambulatory. Date/Time Provider Initiated Documentation: 08/18/19 20:23. Limitations to Documentation: no limitations. Information obtained by: patient. History of Present Illness 64 year old F presents to the emergency department with the chief complaint of Recurrent palpitations, described as similar to prior episodes, Quality is described as constant, and is localized to the chest. Patient reports no radiation. Patient started experiencing this minute(s) and it has been constant. No relieving factors improve symptom(s), No exacerbating factors reported . Patient notes denies chest pain, shortness of breath and syncope. Patient did receive the following treatments prior to arrival, other (States that she took her prescribed verapamil and metoprolol) Related Data Home Medications Medication Instructions Recorded Confirmed Mirena 1 ea INTRAUTERINE DAILY 09/17/17 08/18/19 verapamil 240 mg 24 hr 240 mg PO BID #180 [email or web address] 09/01/18 08/18/19 capsule,extended release atenolol 50 mg tablet 50 mg PO DAILY #90 tab-cap 09/10/18 08/18/19 Dilantin Extended 100 mg capsule 300 mg PO DAILY #270 tab-cap NS 10/02/18 08/18/19 cholecalciferol (vitamin D3) 1,000 unit PO DAILY ml 06/29/19 06/29/19 unit/drop oral drops Previous Rx's Medication Instructions Recorded verapamil 240 mg 24 hr 240 mg PO BID #180 [email or web address] 09/01/18 capsule,extended release atenolol 50 mg tablet 50 mg PO DAILY #90 tab-cap 09/10/18 Dilantin Extended 100 mg capsule 300 mg PO DAILY #270 tab-cap NS 10/02/18 Allergies Allergy/AdvReac Type Severity Reaction Status Date / Time Sulfa (Sulfonamide Allergy Unknown CHILDHOOD Unverified 08/18/19 20:53 Antibiotics) ALLERGY adenosine AdvReac Mild felt like Unverified 08/18/19 20:53 she was going to have seizure General Stated Complaint: Palpitatns RAMOS: 2 Review of Systems Narrative: 6 systems reviewed and otherwise negative [facility] Medical History Endometrial hyperplasia with atypia (Inactive) Epilepsy (Chronic 1975) Essential hypertension (Chronic) Hyperlipidemia (Chronic) Obesity (Chronic) Paroxysmal SVT (supraventricular tachycardia) (Inactive 1994) SVT with aberrant conduction; resolves with IV verapamil Family History Mother , at 74 Alcohol abuse Depression Hyperlipidemia Type 2 diabetes mellitus Hypertension COPD (chronic obstructive pulmonary disease) Father , at 75 of prostate CA Essential hypertension Prostate cancer Alcohol abuse Skin cancer Hypertension Sister Hypertension Brother Depression Hypertension Son No problems noted. Son Hypoparathyroidism Developmental delay Diffuse cerebral atrophy Son No problems noted. Maternal Grandfather Heart disease Hypertension Hyperlipidemia Depression Maternal Grandmother Breast cancer Hypertension Stroke Paternal Grandfather Prostate cancer Skin cancer Asthma Paternal Grandmother Stroke Hypertension Social History Smoking/Tobacco Use Status: Never Alcohol Intake: never Drug use: Never Household members: children Housing: house Do you feel safe at home: Yes Do you feel safe in your relationship?: Yes Female Reproductive History Menstrual control method: permanent sterilization (BTL) History History 3 Para 3 Hx # Term Pregnancies Multiple births Hx # Pregnancies Ectopic pregnancies AB induced Hx Number of Living Children 3 AB spontaneous Exam Narrative Exam Narrative: GEN: awake, alert, oriented 3. Pleasant, well groomed, interactive. HEAD: Normocephalic, atraumatic ENT: Mucous membranes moist, oropharynx unremarkable, External ear exam unremarkable EYES: PERRL, EOMI NECK: Full ROM, no VARSHA, no menigismus CHEST/RESP: Nontender, clear to auscultation bilateral, no wheeze/rhonchi/rales CARDIOVASCULAR: Regular and tachycardic, no murmur, rub liliam. 2+ Rad pulse bilateral ABDOMEN: Soft, nontender, no mass. +Bowel sounds EXT: Full ROM, no rash Neuro: Grossly normal neurologic exam, conversant, interactive. Psych: Speech fluent, thoughts congruent, affect normal Course Vital Signs Vital signs: Vital Signs Pulse 170 H 08/18/19 20:30 Respiratory Rate 14 08/18/19 20:30 Blood Pressure 122/86 08/18/19 20:30 Pulse Oximetry 97 08/18/19 20:30 Pulse 170 H 08/18/19 20:30 Respiratory Rate 14 08/18/19 20:30 Blood Pressure 122/86 08/18/19 20:30 Blood Pressure Position Supine 08/18/19 20:30 Pulse Oximetry 97 08/18/19 20:30 Oxygen Delivery Method Room Air 08/18/19 20:30 Oxygen Flow Rate 0 08/18/19 20:30 Pain Level 0 08/18/19 20:30
[2019-08-18] MEDS: MAGNESIUM SULFATE 1 GM/100 ML BAG IVPB (20:38)
[2019-08-18] MEDS: Verapamil 5 MG/2 ML VIAL IVP (20:39)
[2019-08-18] MEDS: Normal Saline 250 ML 500 ML IV (20:39)
[2019-08-18 20:58] LABS: BUN 15 mg/dL (7-18); CREATININE 1.04 mg/dL (0.55-1.02); Calcium 8.9 mg/dL (8.5-10.1); Chloride 103 mmol/L (98-107); Estimated GFR 53.69 (mL/min/1.73m2); Glucose 132 mg/dL (74-106); Magnesium 1.8 mg/dL (1.8-2.4); Potassium 3.9 mmol/L (3.5-5.1); Sodium 139 mmol/L (136-145)
--- NOTE | 2019-08-18 20:59 | NUR.NOTE ---
Nursing Note: Pt converted with 5 mg Verapamil after approx 5 minutes with nurse and MD at bedside.
[2019-08-18] MEDS: Metoprolol 5 MG/5 ML VIAL IVP (21:59)
== END 2019-08-18 22:50 | disposition home or self-care (01) ==
PROVIDERS: Emergency Provider Emergency Medicine; PCP Nurse Practitioner Family
DX: I47.1 Supraventricular tachycardia (principal)
CPT/HCPCS: 36415; 80048; 93005; 96361; 96365; 96375; 99284; 83735; 93010; J3475

== ENCOUNTER 2020-02-11 21:34 | Outpatient (REF) | payer MEDICAID, SELFPAY ==
[2020-02-11 21:57] LABS: Hemoglobin A1C 5.3 % (<5.7)
[2020-02-11 22:05] LABS: Anion Gap 8.4 mmol/L (3-11); BUN 13 mg/dL (7-18); CO2 27.6 mmol/L (21.0-32.0); CREATININE 0.82 mg/dL (0.55-1.02); Calcium 9.1 mg/dL (8.5-10.1); Calculated LDL 108 mg/dL (<100); Chloride 103 mmol/L (98-107); Cholesterol 207 mg/dL (<200); Glucose 100 mg/dL (74-106); HDL Cholesterol 79 mg/dL (40-60); Potassium 4.1 mmol/L (3.5-5.1); Sodium 139 mmol/L (136-145); TSH 3.12 uIU/mL (0.36-3.74); Triglyceride 104 mg/dL (<150)
== END 2020-02-11 21:54 ==
LOC: LBN 21:34
PROVIDERS: PCP Nurse Practitioner Family; Visit Provider Nurse Practitioner Family
DX: E78.5 Hyperlipidemia, unspecified (principal); I10 Essential (primary) hypertension; R79.89 Other specified abnormal findings of blood chemistry
CPT/HCPCS: 80048; 80061; 83036; 84439; 84443

== ENCOUNTER 2020-10-19 02:26 | Outpatient (CLI) | payer MEDICAID, SELFPAY ==
--- NOTE | 2020-10-19 07:45 | DI.MAMMO_ITS ---
Exam(s) MAMMO SCREENING EXAM: MAMMO SCREENING CLINICAL HISTORY: screening,Z12.39 TECHNIQUE: Bilateral full field digital CC and MLO mammographic images were obtained with 3D tomosyn thesis and utilizing computer aided detection (CAD). COMPARISON: Available for comparison. FINDINGS: Masses/Architectural Distortion: None seen. Microcalcifications: No suspicious pleomorphic-type are seen. Skin Thickening/Nipple Retraction: None. IMPRESSION: 1. No significant interval change with no specific features of malignancy noted. 2. Unless there is more urgent need, screening mammography is recommended, as per [employer] guidelines. BI-RADS Category 1 - Negative Breast Density - Category A - Almost entirely fatty Breast density category C or D implies that the patient has dense breast tissue. Dense breast tissue is very common and is not abnormal but dense breast tissue can make it harder to find cancer on a ma mmogram. Also, dense breast tissue may increase their breast cancer risk. This information about the result of the mammogram report was provided to the patient to raise their awareness. Use this report when you speak with the patient about their risks for breast cancer, which includes their family hist ory. At that time, you may recommend for more screening tests (Ultrasound or MRI) as they might be us eful based on their risk. A negative radiographic report should not delay biopsy if a dominant or clinically suspicious mass is present. Up to ten percent of cancers are not identified on mammography. A negative report may reinforce clinical impression. Adenosis and dense breasts may obscure an underlying neoplasm. False positive reports average 6 to 10%. Patient will receive a letter notifying them of these results.
== END 2020-10-19 02:46 ==
PROVIDERS: PCP Nurse Practitioner Family; Visit Provider Nurse Practitioner Family
DX: Z12.31 Encounter for screening mammogram for malignant neoplasm of breast (principal)
CPT/HCPCS: 77063; 77067

== ENCOUNTER 2021-10-05 18:46 | Outpatient (REF) | payer MEDICAID, SELFPAY ==
[2021-10-05 13:36] LABS: ALT 22 U/L (14-59); AST 15 U/L (15-37); Alkaline Phosphatase 130 U/L (46-116); Anion Gap 10.2 mmol/L (3-11); BUN 13 mg/dL (7-18); Bilirubin, Total 0.4 mg/dL (0.2-1.0); CO2 27.8 mmol/L (21.0-32.0); CREATININE 0.8 mg/dL (0.55-1.02); Calcium 8.5 mg/dL (8.5-10.1); Chloride 105 mmol/L (98-107); Glucose 106 mg/dL (74-106); Potassium 4.5 mmol/L (3.5-5.1); Sodium 143 mmol/L (136-145); Total Protein 7.6 g/dL (6.4-8.2)
== END 2021-10-05 18:47 | disposition home or self-care (01) ==
LOC: LBN 18:46
PROVIDERS: PCP Nurse Practitioner Family
DX: I10 Essential (primary) hypertension (principal); E66.9 Obesity, unspecified
CPT/HCPCS: 80053

== ENCOUNTER 2022-06-12 03:25 | Outpatient (CLI) | payer MEDICAID, SELFPAY ==
[2022-06-12 12:53] LABS: Anion Gap 9.9 mmol/L (3-11); BUN 14 mg/dL (7-18); CO2 27.1 mmol/L (21.0-32.0); CREATININE 0.9 mg/dL (0.55-1.02); Calcium 9.4 mg/dL (8.5-10.1); Calculated LDL 126 mg/dL (<100); Chloride 101 mmol/L (98-107); Cholesterol 233 mg/dL (<200); Estimated GFR 70.95 (mL/min/1.73m2); Glucose 114 mg/dL (74-106); HDL Cholesterol 87 mg/dL (40-60); Potassium 3.9 mmol/L (3.5-5.1); Sodium 138 mmol/L (136-145); TSH (W/Ref FT4) 5.17 uIU/mL (0.36-3.74); Triglyceride 102 mg/dL (<150)
[2022-06-12 12:57] LABS: Hemoglobin A1C 5.3 % (<5.7)
[2022-06-12 13:20] LABS: FREE T4 0.95 ng/dL (0.76-1.46)
== END 2022-06-12 03:26 | disposition home or self-care (01) ==
LOC: LOS 03:26
PROVIDERS: PCP Nurse Practitioner Family; Visit Provider Nurse Practitioner Family
DX: I10 Essential (primary) hypertension (principal); E78.5 Hyperlipidemia, unspecified; R73.09 Other abnormal glucose; E66.01 Morbid (severe) obesity due to excess calories
CPT/HCPCS: 36415; 80048; 80061; 83036; 84439; 84443

== ENCOUNTER 2022-08-07 01:38 | Outpatient (CLI) | payer MEDICARE, MEDICAID, SELFPAY ==
--- NOTE | 2022-08-07 06:30 | DI.MAMMO_ITS ---
Exam(s) MAMMO SCREENING EXAM: MAMMO SCREENING CLINICAL HISTORY: screening,z12.39 TECHNIQUE: Bilateral full field digital CC and MLO mammographic images were obtained with 3D tomosyn thesis and utilizing computer aided detection (CAD). COMPARISON: Available for comparison. FINDINGS: Masses/Architectural Distortion: None seen. Microcalcifications: No suspicious pleomorphic-type are seen. Skin Thickening/Nipple Retraction: None. IMPRESSION: 1. No significant interval change with no specific features of malignancy noted. 2. Unless there is more urgent need, screening mammography is recommended, as per [employer] guidelines. BI-RADS Category 1 - Negative Breast Density - Category A - Almost entirely fatty Breast density category C or D implies that the patient has dense breast tissue. Dense breast tissue is very common and is not abnormal but dense breast tissue can make it harder to find cancer on a ma mmogram. Also, dense breast tissue may increase their breast cancer risk. This information about the result of the mammogram report was provided to the patient to raise their awareness. Use this report when you speak with the patient about their risks for breast cancer, which includes their family hist ory. At that time, you may recommend for more screening tests (Ultrasound or MRI) as they might be us eful based on their risk. A negative radiographic report should not delay biopsy if a dominant or clinically suspicious mass is present. Up to ten percent of cancers are not identified on mammography. A negative report may reinforce clinical impression. Adenosis and dense breasts may obscure an underlying neoplasm. False positive reports average 6 to 10%. Patient will receive a letter notifying them of these results.
== END 2022-08-07 01:58 ==
LOC: DI 01:39
PROVIDERS: PCP Nurse Practitioner Family; Visit Provider Nurse Practitioner Family
DX: Z12.31 Encounter for screening mammogram for malignant neoplasm of breast (principal)
CPT/HCPCS: 77063; 77067

== ENCOUNTER 2022-08-09 04:17 | Outpatient (CLI) | payer MEDICARE, MEDICAID, SELFPAY ==
[2022-08-09 12:47] LABS: BUN 13 mg/dL (7-18); CREATININE 0.9 mg/dL (0.55-1.02); Calcium 9.2 mg/dL (8.5-10.1); Chloride 107 mmol/L (98-107); Estimated GFR 70.95 (mL/min/1.73m2); Glucose 109 mg/dL (74-106); Sodium 142 mmol/L (136-145)
== END 2022-08-09 04:18 | disposition home or self-care (01) ==
LOC: LOS 04:17
PROVIDERS: PCP Nurse Practitioner Family; Visit Provider Nurse Practitioner Family
DX: I10 Essential (primary) hypertension (principal)
CPT/HCPCS: 36415; 80048

== ENCOUNTER 2022-11-15 04:09 | Outpatient (CLI) | payer MEDICARE, MEDICAID, SELFPAY ==
[2022-11-15 11:15] LABS: Anion Gap 11.1 mmol/L (3-11); BUN 20 mg/dL (7-18); CO2 26.9 mmol/L (21.0-32.0); CREATININE 1.1 mg/dL (0.55-1.02); Calcium 9.1 mg/dL (8.5-10.1); Chloride 103 mmol/L (98-107); Estimated GFR 55.76 (mL/min/1.73m2); Glucose 114 mg/dL (74-106); Potassium 3.5 mmol/L (3.5-5.1); Sodium 141 mmol/L (136-145)
== END 2022-11-15 04:10 | disposition home or self-care (01) ==
LOC: LOS 04:10
PROVIDERS: PCP Nurse Practitioner Family; Visit Provider Nurse Practitioner Family
DX: I10 Essential (primary) hypertension (principal)
CPT/HCPCS: 36415; 80048

== ENCOUNTER 2023-07-02 03:19 | Outpatient (CLI) | payer MEDICARE, SELFPAY ==
[2023-07-02 14:00] LABS: Anion Gap 10.6 mmol/L (3-11); BUN 22 mg/dL (7-18); CO2 27.4 mmol/L (21.0-32.0); CREATININE 1.1 mg/dL (0.55-1.02); Calcium 9.5 mg/dL (8.5-10.1); Chloride 103 mmol/L (98-107); Estimated GFR 55.42 (mL/min/1.73m2); Glucose 116 mg/dL (74-106); HDL Cholesterol 82 mg/dL (40-60); Potassium 3.5 mmol/L (3.5-5.1); Sodium 141 mmol/L (136-145); TSH (W/Ref FT4) 3.51 uIU/mL (0.36-3.74); Triglyceride 71 mg/dL (<150)
[2023-07-02 14:10] LABS: Cholesterol 205 mg/dL (<200)
[2023-07-02 14:29] LABS: Calculated LDL 109 mg/dL (<100)
[2023-07-02 18:45] LABS: Hepatitis C Ab w Rflx HCV PCR Negative (Negative)
== END 2023-07-02 03:20 | disposition home or self-care (01) ==
LOC: LOS 03:20
PROVIDERS: PCP Nurse Practitioner Family; Visit Provider Nurse Practitioner Family
DX: I10 Essential (primary) hypertension (principal); E78.5 Hyperlipidemia, unspecified; Z11.59 Encounter for screening for other viral diseases
CPT/HCPCS: 36415; 80048; 80061; 86803; 84443

== ENCOUNTER → 2023-10-03 04:17 | Outpatient (CLI) | payer MEDICARE, SELFPAY ==
--- NOTE | 2023-10-03 06:30 | DI.MAMMO_ITS ---
Exam(s) MAMMO SCREENING EXAM: MAMMO SCREENING CLINICAL HISTORY: screening,Z12.39. TECHNIQUE: Bilateral full field digital CC and MLO mammographic images were obtained with 3D tomosyn thesis and utilizing computer aided detection (CAD). COMPARISON: Prior mammograms were reviewed. FINDINGS: There has been no significant change in the appearance and distribution of the fibroglandular tissue. There are no new spiculated masses nor malignant appearing microcalcification groups. There is no significant architectural distortion nor skin thickening-retraction. IMPRESSION: No radiographic evidence of malignancy. BI-RADS Category 1 - Negative Breast Density - Category A - Almost entirely fatty Breast density Category C or D implies that the patient has dense breast tissue. Dense breast tissue can make it harder to find cancer on a mammogram. Dense breast tissue is also associated with an incr eased risk of breast cancer. This information about the result of the mammogram report was provided to the patient to raise their awareness. Use this report when you speak with the patient about their risks for breast cancer, which includes their family history. At that time, you may recommend additional screening tests (Ultrasoun d or MRI) as these tests may add significant information. A negative radiographic report should not delay biopsy if a dominant or clinically suspicious mass is present. Up to ten percent of cancers are not identified on mammography. A negative report may reinforce clinical impression. Adenosis and dense breasts may obscure an underlying neoplasm. False positive reports average 6 to 10%. Patient will receive a letter notifying them of these results.
== END ==
PROVIDERS: PCP Nurse Practitioner Family; Visit Provider Nurse Practitioner Family
DX: Z12.31 Encounter for screening mammogram for malignant neoplasm of breast (principal)
CPT/HCPCS: 77063; 77067

== ENCOUNTER 2024-10-08 03:36 | Outpatient (CLI) | payer MEDICARE, SELFPAY ==
[2024-10-08 12:50] LABS: Hemoglobin A1C 5.7 % (<5.7)
[2024-10-08 12:53] LABS: PHENYTOIN (DILANTIN) 12.6 ug/mL (10.0-20.0)
[2024-10-08 12:55] LABS: Anion Gap 10.4 mmol/L (3-11); BUN 24 mg/dL (7-18); CO2 25.6 mmol/L (21.0-32.0); CREATININE 1.1 mg/dL (0.55-1.02); Calcium 9.3 mg/dL (8.5-10.1); Chloride 103 mmol/L (98-107); Estimated GFR 55.07 (mL/min/1.73m2); Glucose 120 mg/dL (74-106); Potassium 3.5 mmol/L (3.5-5.1); Sodium 139 mmol/L (136-145)
[2024-10-09 09:53] LABS: HBs Antibody, Quant <3.1 mIU/mL (See Note); Hep B Surface Ab Negative (See Note); Hepatitis B Core Antibody Negative (Negative); Hepatitis B Surface Antigen Negative (Negative)
[2024-10-09 10:17] LABS: HIV-1/2 Ag & Ab Screen Negative (Negative)
== END 2024-10-08 03:37 | disposition home or self-care (01) ==
LOC: LOS 03:36
PROVIDERS: PCP Nurse Practitioner Family; Visit Provider Nurse Practitioner Family
DX: I10 Essential (primary) hypertension (principal); R73.01 Impaired fasting glucose; G40.909 Epilepsy, unspecified, not intractable, without status epilepticus; E78.5 Hyperlipidemia, unspecified; Z11.59 Encounter for screening for other viral diseases; Z11.4 Encounter for screening for human immunodeficiency virus [HIV]
CPT/HCPCS: 36415; 80048; 86704; 86706; 87340; 87389; 80185; 83036